=== PATIENT | female | born 1930 | race Caucasian/White ===

== ENCOUNTER → 2016-09-06 | Outpatient (REF) | payer MEDICARE, MEDICAID ==
[~2016-09-06] MED LIST: /AMLO25TA; ACET-654 PO; ACET65TA; ALBU83IN INH; ARIC10TA; ASPI1TAB PO; BISA10SU4 PR; BISO5TAB5 PO; CELE20TA; COMBAER6 INH; DAILTAB; ENEM1ENE4 PR; LASI20TA PO; LEVO125T41 PO; LISI40TA; LOPR50TA; MILKSUS PO; PRED20TA PO; REME15TA; SENN8.6T10 PO; SENO8.6T5; SERT25TA85 PO; SORB70SO PO; TYLE325T5 PO
[2016-09-06 15:08] LABS: MEAN CORPUSCULAR HEMOGLOBIN 30.3 pg (27.0-33.0); MEAN CORPUSCULAR HGB CONC 32.6 g/dl (32.0-36.5); MEAN CORPUSCULAR VOLUME 92.7 fl (80.0-96.0); RED CELL DISTRIBUTION WIDTH 13.8 % (11.5-14.5); WHITE BLOOD COUNT 4.9 K/mm3 (4.0-10.0)
--- NOTE | 2016-09-06 15:59 | REP ---
AP portable chest: 09/06/2016. Comparison: 12/04/2015, 03/01/2012. Clinical history: COPD, hypoxia and cough. A single AP view is rotated towards the right. There are Flores rods in the upper thoracic and mid thoracic region as before. Slight levoconvex curvature of the upper thoracic spine difficult to assess because of rotation. No effusion or dense consolidation. The aorta is tortuous, unchanged and airway intact. Heart not enlarged and no edema. Calcified granuloma in the right mid lower lung zone. Impression: 1. Flores rods in the mid to upper thoracic spine with rotation of the patient towards the right and without visible infiltrate, pleural effusion, cardiomegaly or edema. Signed by Saulo Blakely MD 09/06/2016 04:32 P
== END ==
PROVIDERS: ATTEND Internal Medicine
DX: J44.1 Chronic obstructive pulmonary disease with (acute) exacerbation (principal)

== ENCOUNTER 2016-09-08 15:46 | Inpatient (IN) | payer MEDICARE, MEDICAID ==
[~2016-09-08] VITALS: Ht 167.6 cm; Wt 61.3 kg
[~2016-09-08 15:46] MED LIST changes: -ACET-654 PO; -ALBU83IN INH; -ASPI1TAB PO; -BISA10SU4 PR; -BISO5TAB5 PO; -COMBAER6 INH; -ENEM1ENE4 PR; -LASI20TA PO; -LEVO125T41 PO; -MILKSUS PO; -PRED20TA PO; -SENN8.6T10 PO; -SERT25TA85 PO; -SORB70SO PO; -TYLE325T5 PO
[2016-09-08 16:25] LABS: MEAN CORPUSCULAR HEMOGLOBIN 29.2 pg (27.0-33.0); MEAN CORPUSCULAR HGB CONC 30.6 g/dl (32.0-36.5); MEAN CORPUSCULAR VOLUME 95.4 fl (80.0-96.0); PLATELET COUNT, AUTOMATED 145 k/mm3 (150-450); RED CELL DISTRIBUTION WIDTH 14.8 % (11.5-14.5); WHITE BLOOD COUNT 15.6 K/mm3 (4.0-10.0)
[2016-09-08 16:35] LABS: BANDS 3 % (< 11)
[2016-09-08 17:15] LABS: INR 0.89
--- NOTE | 2016-09-08 17:23 | REP ---
Acute abdominal series, three views including AP Supine chest and supine and cross table lateral abdomen: PA chest: Comparison is 09/06/2016. The study is performed with the patient AP supine, precluding evaluation for free subdiaphragmatic air. The lung cain are over penetrated but appear clear. No pleural effusions are identified. Cardiac size is normal. There are Flores rods in the thoracic spine. Impression: No acute cardiopulmonary findings. Abdomen, supine and cross-table lateral views: No free intraperitoneal air is identified on the cross-table lateral view. The bowel gas pattern appears normal. There are pelvic calcifications, likely phleboliths. There is internal fixation of the left hip. Impression: Normal bowel gas pattern. Signed by Angelo Kerns MD 09/08/2016 05:15 P
[2016-09-08 17:48] LABS: ALBUMIN 3.2 GM/DL (3.2-5.2); ALBUMIN/GLOBULIN RATIO 0.64 (1.00-1.93); ALKALINE PHOSPHATASE 86 U/L (45-117); ALT/SGPT 34 U/L (12-78); AMYLASE 60 U/L (25-115); ANION GAP 7 MEQ/L (8-16); AST/SGOT 40 U/L (15-37); BILIRUBIN,DIRECT < 0.1 MG/DL (0.0-0.2); BILIRUBIN,TOTAL 0.2 MG/DL (0.2-1.0); BLOOD UREA NITROGEN 57 MG/DL (7-18); CALCIUM LEVEL 9.1 MG/DL (8.8-10.2); CARBON DIOXIDE LEVEL 33 MEQ/L (21-32); CHLORIDE LEVEL 108 MEQ/L (98-107); CREATININE FOR GFR 1.57 MG/DL (0.55-1.02); GLOMERULAR FILTRATION RATE 33.3 (>32); GLUCOSE, FASTING 137 MG/DL (83-110); POTASSIUM SERUM 4.3 MEQ/L (3.5-5.1); SODIUM LEVEL 148 MEQ/L (136-145); TOTAL PROTEIN 8.2 GM/DL (6.4-8.2)
[2016-09-08] MEDS ORDERED: CIPROFLOXACIN/D5W 400 MG/200 ML BAG (J0744) As Ordered ONE (18:44)
[2016-09-08] MEDS ORDERED: ALBU83IN INH ×2 (18:58→19:10)
[2016-09-08] MEDS ORDERED: PRED20TA PO (18:58)
[2016-09-08] MEDS ORDERED: MILKSUS PO (19:10)
[2016-09-08] MEDS ORDERED: LASI20TA PO (19:10)
[2016-09-08] MEDS ORDERED: BISA10SU4 PR (19:10)
[2016-09-08] MEDS ORDERED: SORB70SO PO (19:10)
[2016-09-08] MEDS ORDERED: COMBAER6 INH (19:10)
[2016-09-08] MEDS ORDERED: TYLE325T5 PO (19:10)
[2016-09-08] MEDS ORDERED: ACET-654 PO (19:10)
[2016-09-08] MEDS ORDERED: SERT25TA85 PO (19:10)
[2016-09-08] MEDS ORDERED: BISO5TAB5 PO (19:10)
[2016-09-08] MEDS ORDERED: ENEM1ENE4 PR (19:10)
[2016-09-08] MEDS ORDERED: LEVO125T41 PO (19:10)
[2016-09-08] MEDS ORDERED: ASPI1TAB PO (19:10)
[2016-09-08] MEDS ORDERED: SENN8.6T10 PO (19:10)
[2016-09-08] MEDS ORDERED: NS 1,000 ML IV SCH (20:16)
[2016-09-08] MEDS ORDERED: ACETAMINOPHEN TAB 650MG DOSE (2X325MG) PO PRN (20:30)
[2016-09-08] MEDS ORDERED: ONDANSETRON 4MG/2ML VIAL (J2405) IV PRN (20:30)
[2016-09-08] MEDS ORDERED: IPRATROPIUM 0.5MG/ALBUTEROL 2.5MG INH SOL UD 3ML (DUONEB)(J7620) NEB PRN (20:30)
[2016-09-08] MEDS ORDERED: D5W/0.45% SODIUM CHLORIDE 1,000 ML IV SCH (20:45)
--- NOTE | 2016-09-08 21:30 | REPUSA ---
CLINICAL HISTORY: Abdominal pain TECHNIQUE: CT of the abdomen and pelvis was performed without intravenous contrast by obtaining mary lou guous CT axial slices from level of the heart to the proximal femoral diaphyses. Multiplanar reformat s were obtained in the coronal and sagittal projections. COMPARISON: None FINDINGS : LOWER CHEST: The lung bases demonstrate linear lower lobe atelectasis otherwise are unremarkable. Hea rt is normal in size. No pleural or pericardial effusion is seen. LIVER: The liver is normal in size and contour. BILIARY SYSTEM: Cholelithiasis noted without findings of acute cholecystitis. No intrahepatic biliary ductal dilatation or calcified biliary stones. PANCREAS: The pancreas is normal in size, contour and density. No suspicious cystic lesion or ductal dilatation. SPLEEN: Normal in size with no suspicious cystic lesion. ADRENALS: The adrenal glands are unremarkable. KIDNEYS/URETERS: The kidneys are normal in size. Bilateral cortical low-density lesions noted which a re probable cysts. No stones or hydroureteronephrosis. URINARY BLADDER: The urinary bladder is unremarkable without calcified stone, wall thickening or dive rticula seen. UTERUS/ADNEXA: The uterus and adnexa are unremarkable. AORTA AND ILIAC ARTERIES: No aneurysmal dilatation of the aorta or iliac arteries is seen. LYMPH NODES: No enlarged adenopathy. GASTROINTESTINAL: Sigmoid diverticulosis noted without findings of acute diverticulitis. Stomach, duo denum and remaining bowel normal in caliber with no abnormal dilatation, stenosis, or wall thickening . PERITONEUM/RETROPERITONEUM: No ascites or suspicious fluid collection, extraluminal air, or suspiciou s mass. ABDOMINAL/PELVIC WALL: No hernia is identified. OSSEOUS STRUCTURES/SOFT TISSUES: No suspicious osseous lesion, acute fracture, or soft tissue abnorma lity. T11, T12, and L2 mild superior compression deformities with sclerotic changes, without perivert ebral soft tissue swelling or hematoma; and likely chronic. Moderate L4-S1 degenerative disc changes with endplate sclerosis, disc space narrowing and calcifications. Cortical defect in the posterior me dial right iliac bone noted which from prior trauma or intervention. IMPRESSION : 1. Cholelithiasis noted without findings of acute cholecystitis. 2. Bilateral renal cortical cysts. 3. No other acute intra-abdominal pelvic abnormality identified.
--- NOTE | 2016-09-08 22:58 | EDDOCDS ---
Nurse's Notes [facility] Name: Margo Navarrete Age: 85 yrs Sex: Female : 1930 Arrival Date: 09/08/2016 Time: 15:46 Bed 5 Private MD: Kristin Lazar E Diagnosis: Urinary tract infection, site not specified Presentation: 09/08 15:47 Presenting complaint: EMS states: c/o diarrhea since last night with nausea and nr1 projectile vomiting starting this morning. A few days ago diagnosed with bronchitis. 4mg Zofran IV given en route. Adult Sepsis Screening: The patient does not have new or worsening altered mentation. Patient's respiratory rate is less than 22. Suicide/Homicide risk assessment- the patient denies having any suicidal and/or homicidal ideations and does not present with any other emotional, behavioral or mental health complaints. 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 Transition of care: patient was received from [facility]. 15:47 Acuity: SHENA Level 3 nr1 15:47 Method Of Arrival: Ambulance nr1 22:33 Adult Sepsis Screening: Systolic blood pressure is greater than 100. Patient has a nn1 qSOFA score of 0- Negative Sepsis Screen. Triage Assessment: 15:47 General: Appears ill. nr1 16:34 Pain: Location: abdomen Unable to use pain scale. patient non-verbal. Grimaced when nr1 upper abdomen palpated. The patient is triaged at the bedside. See Assessment in Nurses Notes section of ED record. Respiratory: Airway is patent Respiratory effort is even, labored, Respiratory pattern is regular, symmetrical. GI: Abdomen is obese, Bowel sounds present X 4 quads. Abd is soft X 4 quads Abd is tender to palpation in right upper quadrant and left upper quadrant. Historical: - Allergies: no known allergies; - Home Meds: 1. albuterol sulfate 2.5 mg /3 mL (0.083 %) Nebulizer nebu 4 times per day 2. prednisone 20 mg Oral tab 2 tabs once daily 3. Senna-S 8.6-50 mg oral tab 4. Zebeta 5 mg oral tab 5. Zoloft 25 mg Oral tab 1 tab once daily 6. levothyroxine 125 mcg Oral tab 1 tab once daily 7. ipratropium-albuterol 20-100 mcg/actuation Inhl mist 8. acetaminophen 325 mg Oral tab 2 tabs 9. sorbitol 70 % miscellaneous soln 10. aspirin 81 mg Oral tab 11. Lasix 20 mg Oral tab 1 tab once daily 12. Dulcolax (bisacodyl) 5 mg Oral TbEC 1 tab 13. Milk of Magnesia 400 mg/5 mL Oral susp - PMHx: CKD stage 3; Hypothyroidism; COPD; Dementia; Alzheimers; dysphagia; - PSHx: Unable to obtain; - Social history: Smoking status: unknown if patient ever smoked tobacco. non-verbal. - Family history: No immediate family members are acutely ill. - : The pt / caregiver states he / she is not on anticoagulants. Home medication list is obtained from the facility OCT. - Exposure Risk Screening:: Recent exposure to bronchitis. Screenin:49 Screening information is obtained from prior medical records. Fall risk: At risk due to nr1 age, gait disturbance, immobility. Assistance ADL's: Requires assistance with meal preparation, this assistance is provided by bathing, assistance is provided by dressing, assistance is provided by toileting, assistance is provided by ambulation, assistance is provided by housework, assistance is provided by medication administration, assistance is provided by residence staff. Abuse/DV Screen: The patient / caregiver reports he/she is: pt cannot be assessed for living situation at this time. Nutritional screening: Unable to Assess. Advance Directives: There is an active DNR order and the pt has a copy here at this time. home support is adequate. Assessment: 16:49 General: Appears ill, obese, Behavior is uncooperative, non-verbal. . Pain: Location: nr1 left upper quadrant and right upper quadrant Pain. Neurological: Level of Consciousness is lethargic, Oriented to unable to assess. Cardiovascular: Capillary refill < 3 seconds Rhythm is sinus rhythm No ectopy. Respiratory: Airway is patent Respiratory effort is even, unlabored, Respiratory pattern is regular, symmetrical. GI: Abdomen is obese, Abd is soft Abd is tender to palpation in left upper quadrant and right upper quadrant. : Urine is cloudy, frannie blood. 17:00 General: Appears in no apparent distress, comfortable, to be sleeping. Cardiovascular: ttb Heart tones S1 S2 present Rhythm is sinus rhythm No ectopy. Respiratory: Airway is patent Respiratory effort is even, unlabored, Breath sounds with rhonchi expiratory bilaterally. GI: Abdomen is non- distended obese, Bowel sounds present X 4 quads. Derm: Skin is pale. Injury Description: No known injury. 18:00 General: Appears in no apparent distress, comfortable. Pain: Unable to use pain scale. ttb Patient appears quiet. Neurological:. Respiratory: Airway is patent Respiratory effort is even, unlabored. 18:00 Adult Sepsis Screening: Patient has new or worsening altered mentation (1 point). ttb Patient's respiratory rate is less than 22. Systolic blood pressure is greater than 100. Patient has a qSOFA score of 0- Negative Sepsis Screen. 19:00 Reassessment: Patient appears in no apparent distress at this time. pt resting on ttb stretcher. NAD noted. Intermittent movement. IVF's infusing.. Respiratory: Airway is patent Respiratory effort is even, unlabored. 20:00 General: hospitalist in with pt at this time. Pt remains unresponsive verbally. Moving ttb intermittently. Responds to physical stimuli and voice. Cipro completed. IVF's infusing.. Respiratory: Airway is patent Respiratory effort is even, unlabored, Respiratory pattern is regular, symmetrical. 20:00 GI: other no v/n/d since arrival to ED. : incont of urine. ttb 20:10 Adult Sepsis Screening: Patient has new or worsening altered mentation (1 point). ttb Patient's respiratory rate is less than 22. Systolic blood pressure is greater than 100. Patient has a qSOFA score of 1- Negative Sepsis Screen. 20:58 General: Appears in no apparent distress, Behavior is quiet. General: lab in drawing pt ttb at this time. NAD noted. Pt to be transferred to floor.. Cardiovascular: Rhythm is sinus rhythm. Respiratory: Airway is patent Respiratory effort is even, unlabored. 21:01 General: Report given to next RN to continue care. . ttb 22:31 General: Behavior is restless. Neurological: Level of Consciousness is lethargic, nn1 Oriented to patient nonverbal . Respiratory: Airway is patent Respiratory effort is even, unlabored, Respiratory pattern is regular, symmetrical. Derm: Skin is pale. Vital Signs: 16:47 BP 114 / 72; Pulse 91; Resp 20; Temp 98.0(TE); Pulse Ox 93% on 4 lpm NC; Height 5 ft. 6 nr1 in. (167.64 cm); 17:00 Pulse 78 MON; Pulse Ox 94% ; ttb 17:30 Pulse 80 MON; Pulse Ox 95% ; ttb 18:00 Pulse 78 MON; Pulse Ox 94% ; ttb 18:49 BP 173 / 82 (auto/); ttb 18:49 Pulse 76 MON; Resp 20; Pulse Ox 93% on 2 lpm NC; Pain 0/10; ttb 21:17 BP 142 / 83; Pulse 82; Resp 18; Temp 98.2(TE); Pulse Ox 93% on R/A; mdr 22:30 BP 183 / 78; Pulse 79; Resp 20; Temp 98(TE); Pulse Ox 94% on 2 lpm NC; nn1 Vitals: 16:34 Log In Time N/A - ambulance arrival. nr1 ED Course: 15:47 Patient visited by Becky Díaz, Compliance Vice President. lbd 15:47 Kristin Lazar is Private Physician. lbd 15:47 Quin Rivera,DERRICK is Primary Nurse. lbd 15:47 Patient moved to Waiting lbd 15:47 Patient moved to 5 lbd 15:51 Triage Initiated nr1 15:59 [facility] ke 16:00 Patient visited by Vikas Patterson FNP. ke 16:04 Patient visited by Vikas Patterson FNP. ke 16:32 Patient visited by Vikas Patterson FNP. ke 16:37 Patient visited by Fiorella Chatterjee,DERRICK. nr1 16:49 The patient / caregiver is instructed regarding the plan of care and ED course. Patient nr1 has correct armband on for positive identification. Placed in gown. personnel monitor on. Pulse ox on. NIBP on. 16:49 Maintain field IV. Dressing intact. Good blood return noted. Site clean & dry. Gauge & nr1 site: 18g left AC. 16:53 Urinalysis Sent. ttb 16:53 Urine Culture Sent. ttb 16:55 Patient visited by Fiorella Chatterjee,DERRICK. nr1 16:58 Patient name changed from Margo\S\\S\Landon\S\ to Margo\S\ \S\Landon. EDMS 16:59 [facility] [place] was scanned into [employer] and attached to record. zo 17:00 DIFFERENTIAL NO CHARGE Sent. cln 17:00 Prothrombin Time Profile\E\INR Sent. cln 17:00 Labs drawn. (by ED staff). Labs/Blood culture drawn Urine collected. straight cath ttb specimen. 17:27 Patient visited by Vikas Patterson FNP. ke 17:46 Abdomen, Flat\E\Upright,PA Chest Returned. EDMS 17:49 Patient visited by Vikas Patterson FNP. ke 18:07 Patient visited by Vikas Patterson FNP. ke 18:26 Primary Nurse role handed off by Quin Rivera,DERRICK [facility] 18:38 Patient visited by Vikas Patterson FNP. ke 18:42 Fiorella Chatterjee,DERRICK is Primary Nurse. nr1 18:55 Patient visited by Arin Price RN. ttb 19:15 Stew Richards MD is Hospitalizing Provider. ke 20:10 Patient visited by Arin Price RN. ttb 21:01 Patient visited by Arin Price RN. ttb 21:43 CT ABD & PELVIS W/O CONTRAST Returned. EDMS 22:31 No procedures done that require assistance. nn1 Administered Medications: 17:21 Drug: NS 0.9% 1000 ml [sodium chloride 0.9 % intravenous solution] Route: IV; Rate: 250 ttb mL/hr; Site: left antecubital; 18:48 Drug: Ciprofloxacin 400 mg [ciprofloxacin 400 mg/200 mL in 5 % dextrose intravenous nr1 piggyback] Route: IVPB; Rate: 200 mL/hr; Infused Over: 60 mins; Site: left antecubital; 20:00 Follow up: Response: No Adverse Reaction; No significant change.; IV Status: Completed ttb infusion Order Results: Lab Order: Amylase; SPEC'M 09/08/16 16:57 Test: AMYLASE; Value: 60; Range: 25-115; Units: U/L; Status: F Lab Order: Basic Metabolic Profile; SPEC'M 09/08/16 16:57 Test: GLUCOSE, FASTING; Value: 137; Range: 83-110; Abnormal: Above high normal; Units: MG/DL; Status: F Test: BLOOD UREA NITROGEN; Value: 57; Range: 7-18; Abnormal: Above high normal; Units: MG/DL; Status: F Test: CREATININE FOR GFR; Value: 1.57; Range: 0.55-1.02; Abnormal: Above high normal; Units: MG/DL; Status: F Test: GLOMERULAR FILTRATION RATE; Value: 33.3; Range: >32; Status: F Test: SODIUM LEVEL; Value: 148; Range: 136-145; Abnormal: Above high normal; Units: MEQ/L; Status: F Test: POTASSIUM SERUM; Value: 4.3; Range: 3.5-5.1; Units: MEQ/L; Status: F Test: CHLORIDE LEVEL; Value: 108; Range: 98-107; Abnormal: Above high normal; Units: MEQ/L; Status: F Test: CARBON DIOXIDE LEVEL; Value: 33; Range: 21-32; Abnormal: Above high normal; Units: MEQ/L; Status: F Test: ANION GAP; Value: 7; Range: 8-16; Abnormal: Below low normal; Units: MEQ/L; Status: F Test: CALCIUM LEVEL; Value: 9.1; Range: 8.8-10.2; Units: MG/DL; Status: F Test Note: ; Units are mL/min/1.73 m2 Chronic Kidney Disease Staging per NKF: Stage I & II GFR >=60 Normal to Mildly Decreased Stage III GFR 30-59 Moderately Decreased Stage IV GFR 15-29 Severely Decreased Stage V GFR <15 Very Little GFR Left ESRD GFR <15 on COMMUNITY SERVICE MANAGER Lab Order: CBC with Diff; SPEC'M 09/08/16 16:09 Test: WHITE BLOOD COUNT; Value: 15.6; Range: 4.0-10.0; Abnormal: Above high normal; Units: K/mm3; Status: F Test: RED BLOOD COUNT; Value: 4.23; Range: 4.00-5.40; Units: M/mm3; Status: F Test: HEMOGLOBIN; Value: 12.3; Range: 12.0-16.0; Units: g/dl; Status: F Test: HEMATOCRIT; Value: 40.4; Range: 36.0-47.0; Units: %; Status: F Test: MEAN CORPUSCULAR VOLUME; Value: 95.4; Range: 80.0-96.0; Units: fl; Status: F Test: MEAN CORPUSCULAR HEMOGLOBIN; Value: 29.2; Range: 27.0-33.0; Units: pg; Status: F Test: MEAN CORPUSCULAR HGB CONC; Value: 30.6; Range: 32.0-36.5; Abnormal: Below low normal; Units: g/dl; Status: F Test: RED CELL DISTRIBUTION WIDTH; Value: 14.8; Range: 11.5-14.5; Abnormal: Above high normal; Units: %; Status: F Test: PLATELET COUNT, AUTOMATED; Value: 145; Range: 150-450; Abnormal: Below low normal; Units: k/mm3; Status: F Test: NEUTROPHILS; Value: 88; Range: 35-75; Abnormal: Above high normal; Units: %; Status: F Test: BANDS; Value: 3; Range: < 11; Units: %; Status: F Test: LYMPHOCYTES; Value: 6; Range: 16-52; Abnormal: Below low normal; Units: %; Status: F Test: MONOCYTES; Value: 3; Range: 0-8; Units: %; Status: F Test: RBC MORPHOLOGY; Value: NORMAL; Status: F Lab Order: Lipase; SPEC'M 09/08/16 16:57 Test: LIPASE; Value: 208; Range: 73-393; Units: U/L; Status: F Lab Order: Liver Profile; SPEC'M 09/08/16 16:57 Test: AST/SGOT; Value: 40; Range: 15-37; Abnormal: Above high normal; Units: U/L; Status: F Test: ALT/SGPT; Value: 34; Range: 12-78; Units: U/L; Status: F Test: ALKALINE PHOSPHATASE; Value: 86; Range: 45-117; Units: U/L; Status: F Test: BILIRUBIN,TOTAL; Value: 0.2; Range: 0.2-1.0; Units: MG/DL; Status: F Test: BILIRUBIN,DIRECT; Value: < 0.1; Range: 0.0-0.2; Units: MG/DL; Status: F Test: TOTAL PROTEIN; Value: 8.2; Range: 6.4-8.2; Units: GM/DL; Status: F Test: ALBUMIN; Value: 3.2; Range: 3.2-5.2; Units: GM/DL; Status: F Test: ALBUMIN/GLOBULIN RATIO; Value: 0.64; Range: 1.00-1.93; Abnormal: Below low normal; Status: F Lab Order: Prothrombin Time Profile\E\INR; SPEC'M 09/08/16 16:57 Test: PROTHROMBIN TIME; Value: 12.2; Range: 12.3-14.5; Abnormal: Below low normal; Units: SECONDS; Status: F Test: INR; Value: 0.89; Status: F Test Note: ; THERAPUTIC HUMAN INR VALUES INDICATIONS NORMAL RANGES PROPHYLAXIS/TREATMENT OF: VENOUS THROMBOSIS 2.0-3.0 PULMONARY EMBOLISM 2.0-3.0 PREVENTION OF SYSTEMIC EMBOLISM FROM: TISSUE HEART VALVES 2.0-3.0 ACUTE MYOCARDIAL INFARCTION 2.0-3.0 VALVULAR HEART DISEASE 2.0-3.0 ATRIAL FIBRILLATION 2.0-3.0 MECHANICAL VALVES(HIGH RISK) 2.5-3.5 RECURRENT MYOCARDIAL INFARCTION 2.5-3.5 Lab Order: Urinalysis; SPEC'M 09/08/16 16:46 Test: APPEARANCE, URINE; Value: CLOUDY; Range: CLEAR; Abnormal: Above high normal; Status: F Test: COLOR, URINE; Value: YELLOW; Range: YELLOW; Status: F Test: PH,URINE; Value: 5.0; Range: 5.0-9.0; Units: UNITS; Status: F Test: SPECIFIC GRAVITY URINE AUTO; Value: 1.016; Range: 1.002-1.035; Status: F Test: PROTEIN, URINE AUTO; Value: 2+; Range: NEGATIVE; Abnormal: Above high normal; Units: mg/dL; Status: F Test: GLUCOSE, URINE (UA) AUTO; Value: NEGATIVE; Range: NEGATIVE; Units: mg/dL; Status: F Test: KETONE, URINE AUTO; Value: NEGATIVE; Range: NEGATIVE; Units: mg/dL; Status: F Test: UROBILINOGEN, URINE AUTO; Value: 0.2; Range: 0.0-2.0; Units: mg/dL; Status: F Test: BILIRUBIN, URINE AUTO; Value: NEGATIVE; Range: NEGATIVE; Status: F Test: NITRITE, URINE AUTO; Value: NEGATIVE; Range: NEGATIVE; Status: F Test: LEUKOCYTE ESTERASE, URINE AUTO; Value: 3+; Range: NEGATIVE; Abnormal: Above high normal; Status: F Test: BLOOD, URINE BLOOD; Value: 3+; Range: NEGATIVE; Abnormal: Above high normal; Status: F Test: WBC, URINE AUTO; Value: TNTC; Range: 0-3; Abnormal: Above high normal; Units: /HPF; Status: F Test: RBC, URINE AUTO; Value: TNTC; Range: 0-3; Abnormal: Above high normal; Units: /HPF; Status: F Test: BACTERIA, URINE AUTO; Value: 2+; Range: NEGATIVE; Abnormal: Above high normal; Status: F Test: SQUAMOUS EPITHELIAL CELL UR AU; Value: 1; Range: 0-6; Units: /HPF; Status: F Test: MUCUS, URINE; Value: SMALL; Range: NEGATIVE; Status: F Test: HYALINE CAST, URINE AUTO; Value: 11; Range: 0-1; Units: /LPF; Status: F Test: AMORPHOUS SEDIMENT; Value: SMALL; Range: NEGATIVE; Abnormal: Above high normal; Status: F Lab Order: Lactic Acid (Stout tube on ice); SPEC'M 09/08/16 16:09 Test: LACTIC ACID LEVEL, LACTATE; Value: 2.3; Range: 0.4-2.0; Abnormal: Above upper panic limits; Units: MMOL/L; Status: F Lab Order: PLATELET ESTIMATE; SPEC'M 09/08/16 16:09 Test: PLATELET ESTIMATE; Value: NORMAL; Range: NORMAL; Status: F Lab Order: LACTIC ACID LEVEL, LACTATE; SPEC'M 09/08/16 20:56 Test: LACTIC ACID LEVEL, LACTATE; Value: 1.3; Range: 0.4-2.0; Units: MMOL/L; Status: F Radiology Order: Abdomen, Flat\E\Upright,PA Chest Test: Abdomen, Flat\E\Upright,PA Chest REASON FOR EXAMINATION: Abdomen Pain; Acute abdominal series, three views including AP Supine chest and supine and; cross table lateral abdomen:; ; PA chest:; ; Comparison is 09/06/2016.; ; The study is performed with the patient AP supine, precluding evaluation for free; subdiaphragmatic air.; ; ; ; The lung cain are over penetrated but appear clear.; ; No pleural effusions are identified. Cardiac size is normal. There are; Flores rods in the thoracic spine.; ; Impression:; ; No acute cardiopulmonary findings.; ; ; ; ; ; Abdomen, supine and cross-table lateral views:; ; No free intraperitoneal air is identified on the cross-table lateral view.; ; The bowel gas pattern appears normal. There are pelvic calcifications, likely; phleboliths. There is internal fixation of the left hip.; ; Impression:; ; Normal bowel gas pattern.; ; ; Signed by; Angelo Kerns MD 09/08/2016 05:15 P; Radiology Order: CT ABD & PELVIS W/O CONTRAST Test: CT ABD & PELVIS W/O CONTRAST REASON FOR EXAMINATION: abdominal pain; ; CLINICAL HISTORY: Abdominal pain; TECHNIQUE: CT of the abdomen and pelvis was performed without intravenous contrast by obtaining mary lou; guous CT axial slices from level of the heart to the proximal femoral diaphyses. Multiplanar reformat; s were obtained in the coronal and sagittal projections.; COMPARISON: None; FINDINGS :; LOWER CHEST: The lung bases demonstrate linear lower lobe atelectasis otherwise are unremarkable. Hea; rt is normal in size. No pleural or pericardial effusion is seen.; LIVER: The liver is normal in size and contour.; BILIARY SYSTEM: Cholelithiasis noted without findings of acute cholecystitis. No intrahepatic biliary; ductal dilatation or calcified biliary stones.; PANCREAS: The pancreas is normal in size, contour and density. No suspicious cystic lesion or ductal; dilatation.; SPLEEN: Normal in size with no suspicious cystic lesion.; ADRENALS: The adrenal glands are unremarkable.; KIDNEYS/URETERS: The kidneys are normal in size. Bilateral cortical low-density lesions noted which a; re probable cysts. No stones or hydroureteronephrosis.; URINARY BLADDER: The urinary bladder is unremarkable without calcified stone, wall thickening or dive; rticula seen.; UTERUS/ADNEXA: The uterus and adnexa are unremarkable.; AORTA AND ILIAC ARTERIES: No aneurysmal dilatation of the aorta or iliac arteries is seen.; LYMPH NODES: No enlarged adenopathy.; GASTROINTESTINAL: Sigmoid diverticulosis noted without findings of acute diverticulitis. Stomach, duo; denum and remaining bowel normal in caliber with no abnormal dilatation, stenosis, or wall thickening; .; PERITONEUM/RETROPERITONEUM: No ascites or suspicious fluid collection, extraluminal air, or suspiciou; s mass.; ABDOMINAL/PELVIC WALL: No hernia is identified.; OSSEOUS STRUCTURES/SOFT TISSUES: No suspicious osseous lesion, acute fracture, or soft tissue abnorma; lity. T11, T12, and L2 mild superior compression deformities with sclerotic changes, without perivert; ebral soft tissue swelling or hematoma; and likely chronic. Moderate L4-S1 degenerative disc changes; with endplate sclerosis, disc space narrowing and calcifications. Cortical defect in the posterior me; dial right iliac bone noted which from prior trauma or intervention.; IMPRESSION :; 1. Cholelithiasis noted without findings of acute cholecystitis.; 2. Bilateral renal cortical cysts.; 3. No other acute intra-abdominal pelvic abnormality identified.; ; Outcome: 19:15 Decision to Hospitalize by Provider. ke 22:31 Discharge Assessment: Patient awake, alert and oriented x 3. No cognitive and/or nn1 functional deficits noted. Patient verbalized understanding of disposition instructions. patient administered narcotics - no. The following High Risk Discharge criteria are identified: None. Admitted to PCU accompanied by nurse, accompanied by tech, via stretcher, with oxygen, on monitor, with chart. Condition: stable. Admission hand-off: Report Faxed Fax receipt verified by DERRICK Lord . Property :Personal belongings accompany Pt. 22:33 No special radiology studies were completed. nn1 22:57 Patient left the ED. nn1 Signatures: Dispatcher [employer] EDMS Becky Díaz, Compliance Vice President Unit lbd Vikas Patterson FNP FNP ke Olin, Zoeann zo Hafner, JaneRN RN Arin Smith RN RN ttb Rillera, Nicole, RN RN nr1 Nunez, Nikkole, RN RN nn1 Kareem Isaac, PHOTOVOLTAIC TECHNICIAN PHOTOVOLTAIC TECHNICIAN Gloria Ashley, PHOTOVOLTAIC TECHNICIAN PHOTOVOLTAIC TECHNICIAN cln MTDD
--- NOTE | 2016-09-08 22:58 | EDDOCDS ---
Physician Documentation [facility] Name: Margo Navarrete Age: 85 yrs Sex: Female : 1930 Arrival Date: 09/08/2016 Time: 15:46 Bed 5 Private MD: Kristin Lazar E Disposition: 09/08/16 19:15 Hospitalization ordered by Stew Richards for Inpatient Admission. Preliminary diagnosis is Urinary tract infection, site not specified. - Bed requested for PCU. - Status is Inpatient Admission. nn1 - Condition is Stable. - Problem is an acute exacerbation. - Symptoms are unchanged. Historical: - Allergies: no known allergies; - Home Meds: 1. albuterol sulfate 2.5 mg /3 mL (0.083 %) Nebulizer nebu 4 times per day 2. prednisone 20 mg Oral tab 2 tabs once daily 3. Senna-S 8.6-50 mg oral tab 4. Zebeta 5 mg oral tab 5. Zoloft 25 mg Oral tab 1 tab once daily 6. levothyroxine 125 mcg Oral tab 1 tab once daily 7. ipratropium-albuterol 20-100 mcg/actuation Inhl mist 8. acetaminophen 325 mg Oral tab 2 tabs 9. sorbitol 70 % miscellaneous soln 10. aspirin 81 mg Oral tab 11. Lasix 20 mg Oral tab 1 tab once daily 12. Dulcolax (bisacodyl) 5 mg Oral TbEC 1 tab 13. Milk of Magnesia 400 mg/5 mL Oral susp - PMHx: CKD stage 3; Hypothyroidism; COPD; Dementia; Alzheimers; dysphagia; - PSHx: Unable to obtain; - Social history: Smoking status: unknown if patient ever smoked tobacco. non-verbal. - Family history: No immediate family members are acutely ill. - : The pt / caregiver states he / she is not on anticoagulants. Home medication list is obtained from the facility OCT. - Exposure Risk Screening:: Recent exposure to bronchitis. Vital Signs: 09/08 16:47 BP 114 / 72; Pulse 91; Resp 20; Temp 98.0(TE); Pulse Ox 93% on 4 lpm NC; Height 5 ft. 6 nr1 in. (167.64 cm); 17:00 Pulse 78 MON; Pulse Ox 94% ; ttb 17:30 Pulse 80 MON; Pulse Ox 95% ; ttb 18:00 Pulse 78 MON; Pulse Ox 94% ; ttb 18:49 BP 173 / 82 (auto/); ttb 18:49 Pulse 76 MON; Resp 20; Pulse Ox 93% on 2 lpm NC; Pain 0/10; ttb 21:17 BP 142 / 83; Pulse 82; Resp 18; Temp 98.2(TE); Pulse Ox 93% on R/A; mdr 22:30 BP 183 / 78; Pulse 79; Resp 20; Temp 98(TE); Pulse Ox 94% on 2 lpm NC; nn1 MDM: 16:14 -Blood Culture (Adults Only), peripheral from different site, or from device/port/PICC ke etc. if present ordered. 16:14 IV Saline Lock ordered. ke 16:14 Undress patient appropriately for examination ordered. ke 16:14 Straight cath ordered. ke 16:14 NS 0.9% 1000 ml IV at 250 mL/hr continuous ordered. ke 16:15 Amylase Ordered. EDMS 16:15 Basic Metabolic Profile Ordered. EDMS 16:15 CBC with Diff Ordered. EDMS 16:15 Lipase Ordered. EDMS 16:15 Liver Profile Ordered. EDMS 16:15 Prothrombin Time Profile\E\INR Ordered. EDMS 16:15 Urinalysis Ordered. EDMS 16:15 Lactic Acid (Stout tube on ice) Ordered. EDMS 16:15 Urine Culture Ordered. EDMS 16:16 Abdomen, Flat\E\Upright,PA Chest Ordered. EDMS 16:16 NOTHING BY MOUTH+DIET ordered. EDMS 16:28 DIFFERENTIAL NO CHARGE Ordered. EDMS 16:39 -Blood Culture (Adults Only), peripheral from different site, or from device/port/PICC lbd etc. if present complete. 16:41 BLOOD CULTURES Ordered. EDMS 16:58 Financial registration complete. zo 16:59 [facility] Payment Agreement was scanned into [employer] and attached to record. zo 18:27 Basic Metabolic Profile Reviewed. ke 18:27 CBC with Diff Reviewed. ke 18:27 Liver Profile Reviewed. ke 18:27 Prothrombin Time Profile\E\INR Reviewed. ke 18:27 Urinalysis Reviewed. ke 18:27 Lactic Acid (Stout tube on ice) Reviewed. ke 18:27 Amylase Reviewed. ke 18:27 Lipase Reviewed. ke 18:27 PLATELET ESTIMATE Reviewed. ke 18:27 Abdomen, Flat\E\Upright,PA Chest Reviewed. ke 18:33 Ciprofloxacin 400 mg IVPB at 200 mL/hr once over 60 mins ordered. ke 18:34 BED REQUEST+ADM ordered. EDMS 20:21 NPO DIET ordered. EDMS 20:23 Admission / Observation Status ordered. EDMS 20:23 CT ABD & PELVIS W/O CONTRAST Ordered. EDMS 20:24 LACTIC ACID LEVEL, LACTATE Ordered. EDMS 20:24 CBC WITH DIFFERENTIAL Ordered. EDMS 20:24 RENAL PROFILE Ordered. EDMS 20:24 MAGNESIUM LEVEL Ordered. EDMS 20:24 INFLUENZA A&B RAPID ANTIGEN Ordered. EDMS 21:21 OSMOLALITY,URINE Ordered. EDMS 21:21 SODIUM,RANDOM URINE Ordered. EDMS 22:25 THYROID STIMULATING HORMONE Ordered. EDMS Administered Medications: 17:21 Drug: NS 0.9% 1000 ml [sodium chloride 0.9 % intravenous solution] Route: IV; Rate: 250 ttb mL/hr; Site: left antecubital; 18:48 Drug: Ciprofloxacin 400 mg [ciprofloxacin 400 mg/200 mL in 5 % dextrose intravenous nr1 piggyback] Route: IVPB; Rate: 200 mL/hr; Infused Over: 60 mins; Site: left antecubital; 20:00 Follow up: Response: No Adverse Reaction; No significant change.; IV Status: Completed ttb infusion Signatures: Dispatcher [employer] Becky Luna, Supervisor [employer] Aliyah Wynne RN RN daVikas Mustafa, UNIX SYSTEMS ADMINISTRATOR UN[employer] SYSTEMS ADMINISTRATOR Niki Patel Nicole, RN RN nr1 Maxwell Sunshine RN RN nn1 Arin Price RN ttb The chart was reviewed and I authenticate all verbal orders and agree with the evaluation and treatment provided.Attachments: 16:59 [facility] Payment Agreement zo MTDD
[2016-09-08 23:00] VITALS: BP 140/78
[2016-09-09] MEDS: metroNIDAZOLE 500 MG in APPROPRIATE DILUENT 1 EA IV SCH ×4 (00:03→23:25)
[2016-09-09] MEDS: HEPARIN SOD (PORCINE) 5000 UNITS/ML VIAL SC SCH ×4 (00:03→21:05)
[2016-09-09] MEDS: IPRATROPIUM 0.5MG/ALBUTEROL 2.5MG INH SOL UD 3ML (DUONEB)(J7620) NEB SCH ×4 (01:59→20:15)
[2016-09-09 02:57] VITALS: BP 142/64
[2016-09-09 05:45] LABS: BASO % 0.2 % (0.0-1.0); EOS % 0.3 % (0.0-3.0); LARGE UNSTAINED CELL # 0.1 K/mm3 (0.0-0.4); LYMPH % 18.4 % (24.0-44.0); MEAN CORPUSCULAR HEMOGLOBIN 29.6 pg (27.0-33.0); MEAN CORPUSCULAR HGB CONC 31.9 g/dl (32.0-36.5); MEAN CORPUSCULAR VOLUME 92.8 fl (80.0-96.0); MONO # 0.4 K/mm3 (0.0-0.8); MONO % 3.8 % (0.0-5.0); NEUTROPHILS # 8.2 K/mm3 (1.8-7.7); NEUTROPHILS % 76.2 % (36.0-66.0); PLATELET COUNT, AUTOMATED 129 k/mm3 (150-450); RED CELL DISTRIBUTION WIDTH 14.1 % (11.5-14.5); WHITE BLOOD COUNT 10.8 K/mm3 (4.0-10.0)
[2016-09-09] MEDS ORDERED: CIPROFLOXACIN 200 MG in APPROPRIATE DILUENT 1 EA IV SCH (06:00)
--- NOTE | 2016-09-09 06:00 | HPE ---
DATE OF ADMISSION: 09/08/2016 PRIMARY CARE PROVIDER: Dr. Lazar CODE STATUS: DO NOT RESUSCITATE, DO NOT INTUBATE. CHIEF COMPLAINT: Projectile vomiting and nausea. HISTORY OF PRESENT ILLNESS: Ms. Navarrete is an 85-year-old female with past medical history of advanced dementia, hypertension, hypothyroidism, who was sent in from [facility] for abdominal pain, nausea, and vomiting. History is obtained from medical records and nursing [employer] supervisor at [facility] as the patient at baseline is nonverbal due to her advanced dementia. Per staff, patient was reportedly treated for bronchitis approximately 3 or 4 days ago. Had a chest x-ray 2 days ago and there was no concern for effusion, no infiltrate. She was then treated for chronic obstructive pulmonary disease (COPD), was started on prednisone 40 daily on 09/06/2016. Then earlier today, during assessment, nurse noticed the patient to be moaning. When they examined her, she was felt to have abdominal pain and also had three episodes of projectile vomiting and was sent in for further evaluation. Per staff, she continued to have normal vital signs throughout. Normally is incontinent of urine. Her last bowel habits have been more on the constipated side than diarrhea. In the ED was given 1 liter of normal saline and also ciprofloxacin 400 times one. PAST MEDICAL HISTORY: 1. Dementia. 2. Hypertension. 3. Gastroesophageal reflux disease (GERD). 4. Hypothyroidism. 5. Depression. 6. Osteoporosis. 7. Constipation. 8. First degree atrioventricular (AV) block. 9. Gastrointestinal (GI) bleed. 10. Diverticulosis. 11. History of Escherichia (E) coli urinary tract infection (UTI). PAST SURGICAL HISTORY: 1. Open reduction, internal fixation of left hip in 2005. 2. Bunion repair. 3. Sigmoidoscopy. 4. Esophagogastroduodenoscopy (EGD). ALLERGIES: NO KNOWN DRUG ALLERGIES. HOME MEDICATIONS: - Tylenol 650 mg every 4 hours as needed and 650 mg by mouth daily - albuterol sulfate 2.5 inhaled four times a day - albuterol sulfate as needed - Combivent one puff inhaled twice a day - aspirin 81 mg by mouth daily - bisacodyl 10 mg by mouth daily - bisoprolol 5 mg by mouth daily - enema as needed daily - Lasix 20 mg by mouth daily - Levoxyl 125 mcg by mouth daily - Milk of Magnesia 30 mL by mouth daily - prednisone was started on 09/06/2016 with a plan for stop of 09/10/2016 - senna 8.6 mg by mouth as needed daily - sertraline 25 mg four times a day - sorbitol 30 mL every 2 days FAMILY HISTORY: Unobtainable due to advanced age and dementia. SOCIAL HISTORY: She is currently a resident of [facility]. Her health care proxy is Stew Navarrete, her son (phone number [phone]) who lives in [place]. REVIEW OF SYSTEMS: Unobtainable as per above. PHYSICAL EXAMINATION: Blood pressure 114/72. Heart rate is fluctuated, 76-91. Respiration rate 20. Pulse oximetry 93% on 2 liters nasal cannula. Temperature 98. GENERAL: Patient is lying in bed, comfortable, in no respiratory distress or psychiatric distress. Chronically ill appearing. Appears stated age. HEENT: Normocephalic, atraumatic. Pupils equal and reactive to light. Very dry oral mucosa. Edentulous. No thrush or lesions appreciated. NECK: Supple. Trachea midline. CHEST: Symmetric chest rise. Breath sounds coarse bilateral, but no appreciable wheezing or crackles. HEART: Regular rate and rhythm. S1, S2 present. ABDOMEN: Soft. Diffusely tender to palpation but most significant on right lower quadrant. No guarding. No rebound. No peritoneal signs. EXTREMITY: No pedal edema. Pedal pulses present bilaterally. NEUROLOGICAL: She is baseline nonverbal with advanced dementia. No myoclonus. LABORATORY DATA: WBC 15.6, hemoglobin 12.3, hematocrit 40.4, platelet 145. This is lower compared to her baseline, which was in the 200s. Neutrophil 88, 3 bands. Sodium 148, improved from earlier today, 150. Potassium 4.3, chloride 108, carbon dioxide 33, BUN 57, creatinine 1.57, glucose 137, lactic acid 2.3, calcium 9.1, total bilirubin negative, AST 40, ALT normal, alkaline phosphatase normal. Amylase, lipase within normal limits. PT 12.2, INR 0.89. UA has cloudy appearance, 2+ protein, 3+ blood, 3+ leukocyte esterase, too numerous to count WBC and RBC. Chest x-ray from 09/06/2016 reports Flores rods in mid to upper thoracic spine with rotation of patient towards right without visible infiltrate, pleural effusion, cardiomegaly or edema. Abdominal x-ray shows normal gas bowel pattern. No acute cardiopulmonary findings. IMPRESSION AND PLAN: Ms. Navarrete is an 85-year-old female with advanced dementia sent over from [facility] due to episodes of vomiting and abdominal pain. 1. Abdominal pain, etiology unclear. Possible causes include infectious obstruction, constipation versus ischemia. Have ordered CT abdomen and pelvis. Unfortunately, because of her renal function, contrast cannot be performed. Will followup with result of CT. She has received Cipro in the ED, one dose. Continue supportive treatment with Zofran for antiemetic. Patient will remain nothing by mouth for now. She also has elevated lactic acid. Recheck lactic acid level. 2. Acute kidney injury (CHUY). Her baseline creatinine is around 0.9 to 1.3 going back to as far as 2012. This is likely secondary to dehydration from vomiting and diuretic use, Lasix. Hold home antihypertensive agents. Continue intravenous (IV) hydration with D5-1/2 normal saline. 3. Hyponatremia. This is likely secondary to dehydration from vomiting. Continue cautious fluid rehydration. 4. Leukocytosis. Could be due to underlying infection, ischemia or obstruction. Will check CT abdomen and pelvis as mentioned above. Followup labs in the morning. 5. History of hypothyroidism. Patient will remain nothing by mouth. Levothyroxine will be administered via IV with 80% decrease in conversion. 6. Depression. For now, we will hold her home medications as she has been only taking every other day. Re-evaluation can be made in the morning once her condition improves. 7. 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 Patient reportedly requires total assist and use of Karl lift. 8. Code status. Patient has a life-sustaining treatment (MOLST) form that is DO NOT RESUSCITATE, DO NOT INTUBATE with no IV fluid hydration or IV antibiotics. However, the case was discussed between Dr. Richards and the patient's son, Stew Navarrete, phone number [phone]. At this time, Mr. Navarrete is agreeable to starting IV fluids and also IV antibiotics due to her current condition. He will let us know should he change his mind. I have both independently examined this patient as well as reviewed the dictated note. I have discussed in detail with the resident the findings and plan of treatment as documented in the residents note. I will continue to follow the patient and offer further guidance to the patients care as necessary during this hospital stay. ARPAN
[2016-09-09 06:04] LABS: ALBUMIN 2.8 GM/DL (3.2-5.2); CALCIUM LEVEL 8.8 MG/DL (8.8-10.2); CREATININE FOR GFR 1.18 MG/DL (0.55-1.02); GLOMERULAR FILTRATION RATE 46.2 (>32); MAGNESIUM LEVEL 2.3 MG/DL (1.8-2.4); PHOSPHORUS LEVEL 2.2 MG/DL (2.5-4.9); POTASSIUM SERUM 4.2 MEQ/L (3.5-5.1)
[2016-09-09 08:00] VITALS: BP 167/67
[2016-09-09] MEDS ORDERED: D5W 1,000 ML IV SCH (08:00)
[2016-09-09] MEDS ORDERED: LEVOTHYROXINE 0.125 MG TAB (125 MCG) PO SCH (09:00)
[2016-09-09] MEDS: LEVOTHYROXINE 100 MCG (0.1MG) VIAL IV SCH (09:00)
[2016-09-09] MEDS ORDERED: NEUTRA-PHOS 1.25 GM PACKET PO SCH (09:00)
[2016-09-09 12:00] VITALS: BP 136/63
[2016-09-09] MEDS ORDERED: POTASSIUM PHOSPHATE INJ 20 MMOL in D5W 250 ML IV ONE (12:00)
[2016-09-09 12:39] LABS: ALBUMIN 2.9 GM/DL (3.2-5.2); ALBUMIN/GLOBULIN RATIO 0.66 (1.00-1.93); BILIRUBIN,TOTAL 0.4 MG/DL (0.2-1.0); CALCIUM LEVEL 8.9 MG/DL (8.8-10.2); CREATININE FOR GFR 1.24 MG/DL (0.55-1.02); GLOMERULAR FILTRATION RATE 43.7 (>32); POTASSIUM SERUM 4.4 MEQ/L (3.5-5.1); TOTAL PROTEIN 7.3 GM/DL (6.4-8.2)
--- NOTE | 2016-09-09 13:03 | IPNPDOC ---
Text Note Date of Service The patient was seen on 09/09/16 at 12:38. NOTE Subjective: Patient is an 85 year old female with a PMHx HTN Hypothyroidism, Advanced Dementia, First degree AV oracio, Depression, GERD, Osteoporosis, and History of diverticulosis who presented from for abdominal pain and projectile vomiting. Patient was reportedly being treated for bronchitis and COPD exacerbation. At the [place] patient experienced vomiting of 3 episodes and may have had diarrhea as well, she was then transferred to [facility] for further evaluation. Patient was seen and examined at the bedside. Patient is non-verbal and nursing has noted that she has not experienced any vomiting or diarrhea episodes overnight. Objective: Vitals (See below) General: Lying in bed, no acute distress, comfortable, awake, drowsy, not oriented at all HEENT: NC, AT CVS: RRR, +S1S2 Lungs: Fair air entry b/l, -w/r/r Abdomen: Soft, ND, NT, +BSx4 Extremities: +PPx4, -edema, - calf tenderness Assessment and plan: 1. s/p Abdominal pain with nausea and vomiting, with possible diarrhea - likely 2/2 infectious etiology (possible gastroenteritis), less likely obstruction - No episodes of nausea, vomiting or diarrhea, physical does not reveal any abdominal tenderness at this time - CT abdomen 09/08: cholelithiasis, no cholecystitis, bilateral renal cortical cysts, no other acute intra-abdominal pelvic abnormality identified - GI panel pending - Currently is NPO - will advance as tolerated; will start pureed / nectar thick liquids - c/w Zofran for nausea - c/w Ciprofloxacin and Flagyl (Day #2) 2. Sepsis - - likely 2/2 intraabdominal etiology, possibly 2/2 UTI - afebrile - Leukocytosis present - recent history of cough - treatment for bronchitis - CXR 09/08: Clear lung cain; CT abdomen 09/08: without acute findings - UA dirty with 3+ LE and TNTC WBC, 2+ bacterai - Blood cultures and Urine cultures pending - c/w Ciprofloxacin and Flagyl (Day #2) 3. s/p Lactic acidosis - possibly from sepsis, possibly from dehydration / hypovolemia - s/p Normal saline 4. CHUY - likely pre-renal etiology - Baseline Cr of 0.9 to 1.3 - Cr has trended down from admission - s/p NS 5. Hypernatremia - Na of 149 at this time - Was switched from NS to D5 08/23 NS - Switched to D5W - Will repeat CMP at 12PM today 6. Hypothyroidism - c/w Synthroid 7. Depression - Not on medications - held from admission 8. GI prophylaxis - will start famotidine 9. DVT prophylaxis - c/w heparin Code Status: - DNR/DNI - Was no fluid / IV antibiotics - however discussion with Son (Stew: [phone]) and was advised to have a trial Disposition: - Guarded pending improvement of mental status VS,Fishbone, I+O VS, Fishbone, I+O Laboratory Tests 09/08/16 16:09 Red Blood Count 4.23, Mean Corpuscular Volume 95.4, Mean Corpuscular Hemoglobin 29.2, Mean Corpuscular Hemoglobin Concent 30.6 L, Red Cell Distribution Width 14.8 H, Neutrophils (%) (Auto) , Lymphocytes (%) (Auto) , Monocytes (%) (Auto) , Eosinophils (%) (Auto) , Basophils (%) (Auto) , Neutrophils # (Auto) , Lymphocytes # (Auto) , Monocytes # (Auto) , Eosinophils # (Auto) , Basophils # ( Auto) 09/08/16 16:57 09/09/16 05:23 Red Blood Count 3.98 L, Mean Corpuscular Volume 92.8, Mean Corpuscular Hemoglobin 29.6, Mean Corpuscular Hemoglobin Concent 31.9 L, Red Cell Distribution Width 14.1, Neutrophils (%) (Auto) 76.2 H, Lymphocytes (%) (Auto) 18.4 L, Monocytes (%) (Auto) 3.8, Eosinophils (%) (Auto) 0.3, Basophils (%) ( Auto) 0.2, Neutrophils # (Auto) 8.2 H, Lymphocytes # (Auto) 2.0, Monocytes # ( Auto) 0.4, Eosinophils # (Auto) 0.0, Basophils # (Auto) 0.0, Anion Gap 6 L Vital Signs Date Time Temp Pulse Resp B/P Pulse Ox O2 Delivery O2 Flow Rate FiO2 09/09/16 12:00 96.0 64 18 136/63 90 Nasal Cannula 2.0 I&O- Last 24 Hours up to 6 AM 09/09/16 06:00 Intake Total 175 ml Output Total 0 ml Balance 175 ml MARIA E LANDAVERDE MD Sep 09, 2016 13:03
[2016-09-09] MEDS ORDERED: D5W/0.45% SODIUM CHLORIDE 1,000 ML IV SCH (13:15)
[2016-09-09] MEDS: cefTRIAXone SOD 1 GM in D5W MINI-BAG PLUS 50 ML IV SCH (15:13)
[2016-09-09 16:00] VITALS: BP 130/60
[2016-09-09] MEDS ORDERED: diphenhydrAMINE INJ 50MG/ML VIAL (J1200) IV ONE (17:00)
[2016-09-09 20:09] VITALS: BP 120/54
[2016-09-09] MEDS ORDERED: FAMOTIDINE 20 MG TAB PO SCH (21:00)
[2016-09-09 23:29] VITALS: BP 130/72
[2016-09-10] MEDS: IPRATROPIUM 0.5MG/ALBUTEROL 2.5MG INH SOL UD 3ML (DUONEB)(J7620) NEB SCH ×2 (01:28→07:07)
[2016-09-10] MEDS: cefTRIAXone SOD 1 GM in D5W MINI-BAG PLUS 50 ML IV SCH (02:51)
[2016-09-10 04:13] VITALS: BP 128/68
[2016-09-10 06:01] LABS: BASO % 0.2 % (0.0-1.0); EOS % 0.2 % (0.0-3.0); LARGE UNSTAINED CELL # 0.1 K/mm3 (0.0-0.4); LARGE UNSTAINED CELL % 1.5 % (0.0-4.0); LYMPH # 1.7 K/mm3 (1.5-4.5); LYMPH % 19.2 % (24.0-44.0); MEAN CORPUSCULAR HEMOGLOBIN 29.2 pg (27.0-33.0); MEAN CORPUSCULAR HGB CONC 31.3 g/dl (32.0-36.5); MEAN CORPUSCULAR VOLUME 93.4 fl (80.0-96.0); MONO # 0.4 K/mm3 (0.0-0.8); MONO % 4.9 % (0.0-5.0); NEUTROPHILS # 6.6 K/mm3 (1.8-7.7); NEUTROPHILS % 73.9 % (36.0-66.0); PLATELET COUNT, AUTOMATED 115 k/mm3 (150-450); RED CELL DISTRIBUTION WIDTH 14.1 % (11.5-14.5); WHITE BLOOD COUNT 8.9 K/mm3 (4.0-10.0)
[2016-09-10] MEDS: HEPARIN SOD (PORCINE) 5000 UNITS/ML VIAL SC SCH (06:05)
[2016-09-10 06:17] LABS: ALBUMIN 2.6 GM/DL (3.2-5.2); CALCIUM LEVEL 8.9 MG/DL (8.8-10.2); CREATININE FOR GFR 1.07 MG/DL (0.55-1.02); GLOMERULAR FILTRATION RATE 51.8 (>32); MAGNESIUM LEVEL 2.1 MG/DL (1.8-2.4); PHOSPHORUS LEVEL 1.9 MG/DL (2.5-4.9)
[2016-09-10] MEDS ORDERED: D5W 1,000 ML IV SCH (07:30)
[2016-09-10 08:00] VITALS: BP 154/79
[2016-09-10] MEDS: metroNIDAZOLE 500 MG in APPROPRIATE DILUENT 1 EA IV SCH (08:56)
[2016-09-10] MEDS: LEVOTHYROXINE 100 MCG (0.1MG) VIAL IV SCH (08:56)
[2016-09-10] MEDS ORDERED: MORPHINE 10 MG PR PRN (11:45)
[2016-09-10] MEDS ORDERED: ACETAMINOPHEN TAB 650MG DOSE (2X325MG) XX PRN (11:45)
[2016-09-10] MEDS ORDERED: ACETAMINOPHEN 650 MG SUPP PR PRN (11:45)
[2016-09-10] MEDS: SCOPOLAMINE 1.5 MG TRANSDERMAL TD PRN (12:09)
[2016-09-10] MEDS: LORazepam 1 MG TAB PO PRN ×2 (12:59→16:52)
--- NOTE | 2016-09-10 14:55 | IPNPDOC ---
Text Note Date of Service The patient was seen on 09/10/16 at 14:42. NOTE Subjective: Patient is an 85 year old female with a PMHx HTN Hypothyroidism, Advanced Dementia, First degree AV oracio, Depression, GERD, Osteoporosis, and History of diverticulosis who presented from for abdominal pain and projectile vomiting. Patient was reportedly being treated for bronchitis and COPD exacerbation. At the [place] patient experienced vomiting of 3 episodes and may have had diarrhea as well, she was then transferred to [facility] for further evaluation. Patient was seen and examined at the bedside. Patient remains non-verbal. Patient went for swallow evaluation this morning which reveals that she only had the passive ability to swallow; recommendation was for strict NPO. Review of the patinet's MOLST form shows she did not want to have Feeding tubes placed. I have discussed with the health care proxy; Stew Navarrete (Son) and advised them of the findings. He was agreed that comfort measures only (TOLL TEST DESK WORKER) at this time was the best option for his mother. He has called his sister, who I have also spoken with and she has agreed as well. Objective: Vitals (See below) General: Lying in bed, no acute distress, comfortable, awake, drowsy, not oriented at all HEENT: NC, AT CVS: RRR, +S1S2 Lungs: Fair air entry b/l, + Ronchi / crackles Abdomen: Soft, ND, NT, +BSx4 Extremities: +PPx4, -edema, - calf tenderness Assessment and plan: 1. Sepsis - likely 2/2 intraabdominal etiology - likely 2/2 UTI, possible gastroenteritis - Leukocytosis resolving, remains afebrile - Appears patient was septic on admission - Elevated lactic acid - has trended down - qSOFA score of 2 - recent history of cough - treatment for bronchitis - CXR 09/08: Clear lung cain; CT abdomen 09/08: without acute findings - UA dirty with 3+ LE, and TNTC, WBC, 2+ bacteria - Blood cultures negative - Urine cultures positive for Proteus Mirabilis - c/w Ciprofloxacin and Flagyl (Day #2) 2. s/p Abdominal pain with nausea and vomiting, with possible diarrhea - likely 2/2 infectious etiology (possible gastroenteritis), less likely obstruction, likely 2/2 UTI - No episodes of nausea, vomiting or diarrhea, physical does not reveal any abdominal tenderness at this time - CT abdomen 09/08: cholelithiasis, no cholecystitis, bilateral renal cortical cysts, no other acute intra-abdominal pelvic abnormality identified - GI panel pending - Swallow study complete - NPO strict; only passive ability to swallow - c/w Zofran for nausea - c/w Ceftriaxone and Flagyl (Day #3) - s/p Ciprofloxacin 3. s/p Lactic acidosis - possibly from sepsis, possibly from dehydration / hypovolemia - s/p Normal saline 4. CHUY - likely pre-renal etiology - Baseline Cr of 0.9 to 1.3 - Cr has trended down from admission - s/p NS 5. Hypernatremia - Na of 149 at this time - Was switched from NS to D5 1/2 NS - d/c D5W - re: course lung sounds (fluid overload) 6. Hypothyroidism - c/w Synthroid 7. Depression - Not on medications - held from admission 8. GI prophylaxis - will start famotidine 9. DVT prophylaxis - c/w heparin Code Status: - DNR/DNI - Was no fluid / IV antibiotics - however discussion with Son (Stew: [phone]) and was advised to have a trial Disposition: - Discussed with son (Stew) advised him of the swallow eval and the MOLST form of no feeding tube; advised that this may be the progression of dementia - Agreed that the patient did not want to have a feeding tube - Patient was made TOLL TEST DESK WORKER VS,Fishbone, I+O VS, Fishbone, I+O Laboratory Tests 09/10/16 05:25 Anion Gap 5 L, Red Blood Count 3.72 L, Mean Corpuscular Volume 93.4, Mean Corpuscular Hemoglobin 29.2, Mean Corpuscular Hemoglobin Concent 31.3 L, Red Cell Distribution Width 14.1, Neutrophils (%) (Auto) 73.9 H, Lymphocytes (%) ( Auto) 19.2 L, Monocytes (%) (Auto) 4.9, Eosinophils (%) (Auto) 0.2, Basophils (% ) (Auto) 0.2, Neutrophils # (Auto) 6.6, Lymphocytes # (Auto) 1.7, Monocytes # ( Auto) 0.4, Eosinophils # (Auto) 0.0, Basophils # (Auto) 0.0 Vital Signs Date Time Temp Pulse Resp B/P Pulse Ox O2 Delivery O2 Flow Rate FiO2 09/10/16 08:00 96.8 92 20 154/79 95 Nasal Cannula 2.0 I&O- Last 24 Hours up to 6 AM 09/10/16 06:00 Intake Total 930 ml Output Total 0 ml Balance 930 ml MARIA E LANDAVERDE MD Sep 10, 2016 14:55
--- NOTE | 2016-09-10 23:58 | EDDOCDS ---
Physician Documentation [facility] Name: Margo Navarrete Age: 85 yrs Sex: Female : 1930 Arrival Date: 09/08/2016 Time: 15:46 Bed 5 Private MD: Kristin Lazar E Disposition: 09/08/16 19:15 Hospitalization ordered by Stew Richards for Inpatient Admission. Preliminary diagnosis is Urinary tract infection, site not specified. - Bed requested for PCU. - Status is Inpatient Admission. nn1 - Condition is Stable. - Problem is an acute exacerbation. - Symptoms are unchanged. Historical: - Allergies: no known allergies; - Home Meds: 1. albuterol sulfate 2.5 mg /3 mL (0.083 %) Nebulizer nebu 4 times per day 2. prednisone 20 mg Oral tab 2 tabs once daily 3. Senna-S 8.6-50 mg oral tab 4. Zebeta 5 mg oral tab 5. Zoloft 25 mg Oral tab 1 tab once daily 6. levothyroxine 125 mcg Oral tab 1 tab once daily 7. ipratropium-albuterol 20-100 mcg/actuation Inhl mist 8. acetaminophen 325 mg Oral tab 2 tabs 9. sorbitol 70 % miscellaneous soln 10. aspirin 81 mg Oral tab 11. Lasix 20 mg Oral tab 1 tab once daily 12. Dulcolax (bisacodyl) 5 mg Oral TbEC 1 tab 13. Milk of Magnesia 400 mg/5 mL Oral susp - PMHx: CKD stage 3; Hypothyroidism; COPD; Dementia; Alzheimers; dysphagia; - PSHx: Unable to obtain; - Social history: Smoking status: unknown if patient ever smoked tobacco. non-verbal. - Family history: No immediate family members are acutely ill. - : The pt / caregiver states he / she is not on anticoagulants. Home medication list is obtained from the facility OCT. - Exposure Risk Screening:: Recent exposure to bronchitis. Vital Signs: 09/08 16:47 BP 114 / 72; Pulse 91; Resp 20; Temp 98.0(TE); Pulse Ox 93% on 4 lpm NC; Height 5 ft. 6 nr1 in. (167.64 cm); 17:00 Pulse 78 MON; Pulse Ox 94% ; ttb 17:30 Pulse 80 MON; Pulse Ox 95% ; ttb 18:00 Pulse 78 MON; Pulse Ox 94% ; ttb 18:49 BP 173 / 82 (auto/); ttb 18:49 Pulse 76 MON; Resp 20; Pulse Ox 93% on 2 lpm NC; Pain 0/10; ttb 21:17 BP 142 / 83; Pulse 82; Resp 18; Temp 98.2(TE); Pulse Ox 93% on R/A; mdr 22:30 BP 183 / 78; Pulse 79; Resp 20; Temp 98(TE); Pulse Ox 94% on 2 lpm NC; nn1 MDM: 16:14 -Blood Culture (Adults Only), peripheral from different site, or from device/port/PICC ke etc. if present ordered. 16:14 IV Saline Lock ordered. ke 16:14 Undress patient appropriately for examination ordered. ke 16:14 Straight cath ordered. ke 16:14 NS 0.9% 1000 ml IV at 250 mL/hr continuous ordered. ke 16:15 Amylase Ordered. EDMS 16:15 Basic Metabolic Profile Ordered. EDMS 16:15 CBC with Diff Ordered. EDMS 16:15 Lipase Ordered. EDMS 16:15 Liver Profile Ordered. EDMS 16:15 Prothrombin Time Profile\E\INR Ordered. EDMS 16:15 Urinalysis Ordered. EDMS 16:15 Lactic Acid (Stout tube on ice) Ordered. EDMS 16:15 Urine Culture Ordered. EDMS 16:16 Abdomen, Flat\E\Upright,PA Chest Ordered. EDMS 16:16 NOTHING BY MOUTH+DIET ordered. EDMS 16:28 DIFFERENTIAL NO CHARGE Ordered. EDMS 16:39 -Blood Culture (Adults Only), peripheral from different site, or from device/port/PICC lbd etc. if present complete. 16:41 BLOOD CULTURES Ordered. EDMS 16:58 Financial registration complete. zo 16:59 [facility] [place] into [employer] and attached to record. zo 18:27 Basic Metabolic Profile Reviewed. ke 18:27 CBC with Diff Reviewed. ke 18:27 Liver Profile Reviewed. ke 18:27 Prothrombin Time Profile\E\INR Reviewed. ke 18:27 Urinalysis Reviewed. ke 18:27 Lactic Acid (Stout tube on ice) Reviewed. ke 18:27 Amylase Reviewed. ke 18:27 Lipase Reviewed. ke 18:27 PLATELET ESTIMATE Reviewed. ke 18:27 Abdomen, Flat\E\Upright,PA Chest Reviewed. ke 18:33 Ciprofloxacin 400 mg IVPB at 200 mL/hr once over 60 mins ordered. ke 18:34 BED REQUEST+ADM ordered. EDMS 20:21 NPO DIET ordered. EDMS 20:23 Admission / Observation Status ordered. EDMS 20:23 CT ABD & PELVIS W/O CONTRAST Ordered. EDMS 20:24 LACTIC ACID LEVEL, LACTATE Ordered. EDMS 20:24 CBC WITH DIFFERENTIAL Ordered. EDMS 20:24 RENAL PROFILE Ordered. EDMS 20:24 MAGNESIUM LEVEL Ordered. EDMS 20:24 INFLUENZA A&B RAPID ANTIGEN Ordered. EDMS 21:21 OSMOLALITY,URINE Ordered. EDMS 21:21 SODIUM,RANDOM URINE Ordered. EDMS 22:25 THYROID STIMULATING HORMONE Ordered. EDMS 09/09 11:22 T-Sheet-- Draft Copy was scanned into [employer] and attached to record. gb 11: PCR was scanned into [employer] and attached to record. gb Administered Medications: 09/08 17:21 Drug: NS 0.9% 1000 ml [sodium chloride 0.9 % intravenous solution] Route: IV; Rate: 250 ttb mL/hr; Site: left antecubital; 18:48 Drug: Ciprofloxacin 400 mg [ciprofloxacin 400 mg/200 mL in 5 % dextrose intravenous nr1 piggyback] Route: IVPB; Rate: 200 mL/hr; Infused Over: 60 mins; Site: left antecubital; 20:00 Follow up: Response: No Adverse Reaction; No significant change.; IV Status: Completed ttb infusion Signatures: Dispatcher [employer] EDKS Becky Díaz, Cylinder Gr[employer] Aliyah Wynne RN RN daTaylor Knutson, Jonathan Reg gb Vikas Patterson, PREPRESS SPECIALIST PREPRESS SPECIALIST Niki Patel Nicole, RN RN nr1 Maxwell Sunshine RN RN brice1 Arin Price RN ttb The chart was reviewed and I authenticate all verbal orders and agree with the evaluation and treatment provided.Attachments: 16:59 [facility] Payment Agreement zo 09/09 11:22 T-Sheet-- Draft Copy gb Chart Complete MTDD
--- NOTE | 2016-09-10 23:58 | EDDOCDS ---
Nurse's Notes [facility] Name: Margo Navarrete Age: 85 yrs Sex: Female : 1930 Arrival Date: 09/08/2016 Time: 15:46 Bed 5 Private MD: Kristin Lazar E Diagnosis: Urinary tract infection, site not specified Presentation: 09/08 15:47 Presenting complaint: EMS states: c/o diarrhea since last night with nausea and nr1 projectile vomiting starting this morning. A few days ago diagnosed with bronchitis. 4mg Zofran IV given en route. Adult Sepsis Screening: The patient does not have new or worsening altered mentation. Patient's respiratory rate is less than 22. Suicide/Homicide risk assessment- the patient denies having any suicidal and/or homicidal ideations and does not present with any other emotional, behavioral or mental health complaints. 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 Transition of care: patient was received from [facility]. 15:47 Acuity: SHENA Level 3 nr1 15:47 Method Of Arrival: Ambulance nr1 22:33 Adult Sepsis Screening: Systolic blood pressure is greater than 100. Patient has a nn1 qSOFA score of 0- Negative Sepsis Screen. Triage Assessment: 15:47 General: Appears ill. nr1 16:34 Pain: Location: abdomen Unable to use pain scale. patient non-verbal. Grimaced when nr1 upper abdomen palpated. The patient is triaged at the bedside. See Assessment in Nurses Notes section of ED record. Respiratory: Airway is patent Respiratory effort is even, labored, Respiratory pattern is regular, symmetrical. GI: Abdomen is obese, Bowel sounds present X 4 quads. Abd is soft X 4 quads Abd is tender to palpation in right upper quadrant and left upper quadrant. Historical: - Allergies: no known allergies; - Home Meds: 1. albuterol sulfate 2.5 mg /3 mL (0.083 %) Nebulizer nebu 4 times per day 2. prednisone 20 mg Oral tab 2 tabs once daily 3. Senna-S 8.6-50 mg oral tab 4. Zebeta 5 mg oral tab 5. Zoloft 25 mg Oral tab 1 tab once daily 6. levothyroxine 125 mcg Oral tab 1 tab once daily 7. ipratropium-albuterol 20-100 mcg/actuation Inhl mist 8. acetaminophen 325 mg Oral tab 2 tabs 9. sorbitol 70 % miscellaneous soln 10. aspirin 81 mg Oral tab 11. Lasix 20 mg Oral tab 1 tab once daily 12. Dulcolax (bisacodyl) 5 mg Oral TbEC 1 tab 13. Milk of Magnesia 400 mg/5 mL Oral susp - PMHx: CKD stage 3; Hypothyroidism; COPD; Dementia; Alzheimers; dysphagia; - PSHx: Unable to obtain; - Social history: Smoking status: unknown if patient ever smoked tobacco. non-verbal. - Family history: No immediate family members are acutely ill. - : The pt / caregiver states he / she is not on anticoagulants. Home medication list is obtained from the facility OCT. - Exposure Risk Screening:: Recent exposure to bronchitis. Screenin:49 Screening information is obtained from prior medical records. Fall risk: At risk due to nr1 age, gait disturbance, immobility. Assistance ADL's: Requires assistance with meal preparation, this assistance is provided by bathing, assistance is provided by dressing, assistance is provided by toileting, assistance is provided by ambulation, assistance is provided by housework, assistance is provided by medication administration, assistance is provided by residence staff. Abuse/DV Screen: The patient / caregiver reports he/she is: pt cannot be assessed for living situation at this time. Nutritional screening: Unable to Assess. Advance Directives: There is an active DNR order and the pt has a copy here at this time. home support is adequate. Assessment: 16:49 General: Appears ill, obese, Behavior is uncooperative, non-verbal. . Pain: Location: nr1 left upper quadrant and right upper quadrant Pain. Neurological: Level of Consciousness is lethargic, Oriented to unable to assess. Cardiovascular: Capillary refill < 3 seconds Rhythm is sinus rhythm No ectopy. Respiratory: Airway is patent Respiratory effort is even, unlabored, Respiratory pattern is regular, symmetrical. GI: Abdomen is obese, Abd is soft Abd is tender to palpation in left upper quadrant and right upper quadrant. : Urine is cloudy, frannie blood. 17:00 General: Appears in no apparent distress, comfortable, to be sleeping. Cardiovascular: ttb Heart tones S1 S2 present Rhythm is sinus rhythm No ectopy. Respiratory: Airway is patent Respiratory effort is even, unlabored, Breath sounds with rhonchi expiratory bilaterally. GI: Abdomen is non- distended obese, Bowel sounds present X 4 quads. Derm: Skin is pale. Injury Description: No known injury. 18:00 General: Appears in no apparent distress, comfortable. Pain: Unable to use pain scale. ttb Patient appears quiet. Neurological:. Respiratory: Airway is patent Respiratory effort is even, unlabored. 18:00 Adult Sepsis Screening: Patient has new or worsening altered mentation (1 point). ttb Patient's respiratory rate is less than 22. Systolic blood pressure is greater than 100. Patient has a qSOFA score of 0- Negative Sepsis Screen. 19:00 Reassessment: Patient appears in no apparent distress at this time. pt resting on ttb stretcher. NAD noted. Intermittent movement. IVF's infusing.. Respiratory: Airway is patent Respiratory effort is even, unlabored. 20:00 General: hospitalist in with pt at this time. Pt remains unresponsive verbally. Moving ttb intermittently. Responds to physical stimuli and voice. Cipro completed. IVF's infusing.. Respiratory: Airway is patent Respiratory effort is even, unlabored, Respiratory pattern is regular, symmetrical. 20:00 GI: other no v/n/d since arrival to ED. : incont of urine. ttb 20:10 Adult Sepsis Screening: Patient has new or worsening altered mentation (1 point). ttb Patient's respiratory rate is less than 22. Systolic blood pressure is greater than 100. Patient has a qSOFA score of 1- Negative Sepsis Screen. 20:58 General: Appears in no apparent distress, Behavior is quiet. General: lab in drawing pt ttb at this time. NAD noted. Pt to be transferred to floor.. Cardiovascular: Rhythm is sinus rhythm. Respiratory: Airway is patent Respiratory effort is even, unlabored. 21:01 General: Report given to next RN to continue care. . ttb 22:31 General: Behavior is restless. Neurological: Level of Consciousness is lethargic, nn1 Oriented to patient nonverbal . Respiratory: Airway is patent Respiratory effort is even, unlabored, Respiratory pattern is regular, symmetrical. Derm: Skin is pale. Vital Signs: 16:47 BP 114 / 72; Pulse 91; Resp 20; Temp 98.0(TE); Pulse Ox 93% on 4 lpm NC; Height 5 ft. 6 nr1 in. (167.64 cm); 17:00 Pulse 78 MON; Pulse Ox 94% ; ttb 17:30 Pulse 80 MON; Pulse Ox 95% ; ttb 18:00 Pulse 78 MON; Pulse Ox 94% ; ttb 18:49 BP 173 / 82 (auto/); ttb 18:49 Pulse 76 MON; Resp 20; Pulse Ox 93% on 2 lpm NC; Pain 0/10; ttb 21:17 BP 142 / 83; Pulse 82; Resp 18; Temp 98.2(TE); Pulse Ox 93% on R/A; mdr 22:30 BP 183 / 78; Pulse 79; Resp 20; Temp 98(TE); Pulse Ox 94% on 2 lpm NC; nn1 Vitals: 16:34 Log In Time N/A - ambulance arrival. nr1 ED Course: 15:47 Patient visited by Becky Díaz, Regulatory Analyst. lbd 15:47 Kristin Lazar is Private Physician. lbd 15:47 Quin Rivera,DERRICK is Primary Nurse. lbd 15:47 Patient moved to Waiting lbd 15:47 Patient moved to 5 lbd 15:51 Triage Initiated nr1 15:59 [facility] ke 16:00 Patient visited by Vikas Patterson FNP. ke 16:04 Patient visited by Vikas Patterson FNP. ke 16:32 Patient visited by Vikas Pattreson FNP. ke 16:37 Patient visited by Fiorella Chatterjee,DERRICK. nr1 16:49 The patient / caregiver is instructed regarding the plan of care and ED course. Patient nr1 has correct armband on for positive identification. Placed in gown. environmental monitoring specialist on. Pulse ox on. NIBP on. 16:49 Maintain field IV. Dressing intact. Good blood return noted. Site clean & dry. Gauge & nr1 site: 18g left AC. 16:53 Urinalysis Sent. ttb 16:53 Urine Culture Sent. ttb 16:55 Patient visited by Fiorella Chatterjee,DERRICK. nr1 16:58 Patient name changed from Margo\S\\S\Landon\S\ to Margo\S\ \S\Landon. EDMS 16:59 [facility] Payment Agreement was scanned into [employer] and attached to record. zo 17:00 DIFFERENTIAL NO CHARGE Sent. cln 17:00 Prothrombin Time Profile\E\INR Sent. cln 17:00 Labs drawn. (by ED staff). Labs/Blood culture drawn Urine collected. straight cath ttb specimen. 17:27 Patient visited by Vikas Patterson FNP. ke 17:46 Abdomen, Flat\E\Upright,PA Chest Returned. EDMS 17:49 Patient visited by Vikas Patterson FNP. ke 18:07 Patient visited by Vikas Patterson FNP. ke 18:26 Primary Nurse role handed off by Quin Rivera,DERRICK [facility] 18:38 Patient visited by Vikas Patterson FNP. ke 18:42 Fiorella Chatterjee,DERRICK is Primary Nurse. nr1 18:55 Patient visited by Arin Price RN. ttb 19:15 Stew Richards MD is Hospitalizing Provider. ke 20:10 Patient visited by Arin Price RN. ttb 21:01 Patient visited by Arin Price RN. ttb 21:43 CT ABD & PELVIS W/O CONTRAST Returned. EDMS 22:31 No procedures done that require assistance. nn1 09/09 11:22 T-Sheet-- Draft Copy was scanned into [employer] and attached to record. gb 11:22 PCR was scanned into [employer] and attached to record. gb Administered Medications: 09/08 17:21 Drug: NS 0.9% 1000 ml [sodium chloride 0.9 % intravenous solution] Route: IV; Rate: 250 ttb mL/hr; Site: left antecubital; 18:48 Drug: Ciprofloxacin 400 mg [ciprofloxacin 400 mg/200 mL in 5 % dextrose intravenous nr1 piggyback] Route: IVPB; Rate: 200 mL/hr; Infused Over: 60 mins; Site: left antecubital; 20:00 Follow up: Response: No Adverse Reaction; No significant change.; IV Status: Completed ttb infusion Order Results: Lab Order: Amylase; SPEC'M 09/08/16 16:57 Test: AMYLASE; Value: 60; Range: 25-115; Units: U/L; Status: F Lab Order: Basic Metabolic Profile; SPEC'M 09/08/16 16:57 Test: GLUCOSE, FASTING; Value: 137; Range: 83-110; Abnormal: Above high normal; Units: MG/DL; Status: F Test: BLOOD UREA NITROGEN; Value: 57; Range: 7-18; Abnormal: Above high normal; Units: MG/DL; Status: F Test: CREATININE FOR GFR; Value: 1.57; Range: 0.55-1.02; Abnormal: Above high normal; Units: MG/DL; Status: F Test: GLOMERULAR FILTRATION RATE; Value: 33.3; Range: >32; Status: F Test: SODIUM LEVEL; Value: 148; Range: 136-145; Abnormal: Above high normal; Units: MEQ/L; Status: F Test: POTASSIUM SERUM; Value: 4.3; Range: 3.5-5.1; Units: MEQ/L; Status: F Test: CHLORIDE LEVEL; Value: 108; Range: 98-107; Abnormal: Above high normal; Units: MEQ/L; Status: F Test: CARBON DIOXIDE LEVEL; Value: 33; Range: 21-32; Abnormal: Above high normal; Units: MEQ/L; Status: F Test: ANION GAP; Value: 7; Range: 8-16; Abnormal: Below low normal; Units: MEQ/L; Status: F Test: CALCIUM LEVEL; Value: 9.1; Range: 8.8-10.2; Units: MG/DL; Status: F Test Note: ; Units are mL/min/1.73 m2 Chronic Kidney Disease Staging per NKF: Stage I & II GFR >=60 Normal to Mildly Decreased Stage III GFR 30-59 Moderately Decreased Stage IV GFR 15-29 Severely Decreased Stage V GFR <15 Very Little GFR Left ESRD GFR <15 on [employer]PERATIONS [employer]PER[employer] Lab Order: CBC with Diff; SPEC'M 09/08/16 16:09 Test: WHITE BLOOD COUNT; Value: 15.6; Range: 4.0-10.0; Abnormal: Above high normal; Units: K/mm3; Status: F Test: RED BLOOD COUNT; Value: 4.23; Range: 4.00-5.40; Units: M/mm3; Status: F Test: HEMOGLOBIN; Value: 12.3; Range: 12.0-16.0; Units: g/dl; Status: F Test: HEMATOCRIT; Value: 40.4; Range: 36.0-47.0; Units: %; Status: F Test: MEAN CORPUSCULAR VOLUME; Value: 95.4; Range: 80.0-96.0; Units: fl; Status: F Test: MEAN CORPUSCULAR HEMOGLOBIN; Value: 29.2; Range: 27.0-33.0; Units: pg; Status: F Test: MEAN CORPUSCULAR HGB CONC; Value: 30.6; Range: 32.0-36.5; Abnormal: Below low normal; Units: g/dl; Status: F Test: RED CELL DISTRIBUTION WIDTH; Value: 14.8; Range: 11.5-14.5; Abnormal: Above high normal; Units: %; Status: F Test: PLATELET COUNT, AUTOMATED; Value: 145; Range: 150-450; Abnormal: Below low normal; Units: k/mm3; Status: F Test: NEUTROPHILS; Value: 88; Range: 35-75; Abnormal: Above high normal; Units: %; Status: F Test: BANDS; Value: 3; Range: < 11; Units: %; Status: F Test: LYMPHOCYTES; Value: 6; Range: 16-52; Abnormal: Below low normal; Units: %; Status: F Test: MONOCYTES; Value: 3; Range: 0-8; Units: %; Status: F Test: RBC MORPHOLOGY; Value: NORMAL; Status: F Lab Order: Lipase; SPEC'M 09/08/16 16:57 Test: LIPASE; Value: 208; Range: 73-393; Units: U/L; Status: F Lab Order: Liver Profile; SPEC'M 09/08/16 16:57 Test: AST/SGOT; Value: 40; Range: 15-37; Abnormal: Above high normal; Units: U/L; Status: F Test: ALT/SGPT; Value: 34; Range: 12-78; Units: U/L; Status: F Test: ALKALINE PHOSPHATASE; Value: 86; Range: 45-117; Units: U/L; Status: F Test: BILIRUBIN,TOTAL; Value: 0.2; Range: 0.2-1.0; Units: MG/DL; Status: F Test: BILIRUBIN,DIRECT; Value: < 0.1; Range: 0.0-0.2; Units: MG/DL; Status: F Test: TOTAL PROTEIN; Value: 8.2; Range: 6.4-8.2; Units: GM/DL; Status: F Test: ALBUMIN; Value: 3.2; Range: 3.2-5.2; Units: GM/DL; Status: F Test: ALBUMIN/GLOBULIN RATIO; Value: 0.64; Range: 1.00-1.93; Abnormal: Below low normal; Status: F Lab Order: Prothrombin Time Profile\E\INR; [facility] 09/08/16 16:57 Test: PROTHROMBIN TIME; Value: 12.2; Range: 12.3-14.5; Abnormal: Below low normal; Units: SECONDS; Status: F Test: INR; Value: 0.89; Status: F Test Note: ; THERAPUTIC HUMAN INR VALUES INDICATIONS NORMAL RANGES PROPHYLAXIS/TREATMENT OF: VENOUS THROMBOSIS 2.0-3.0 PULMONARY EMBOLISM 2.0-3.0 PREVENTION OF SYSTEMIC EMBOLISM FROM: TISSUE HEART VALVES 2.0-3.0 ACUTE MYOCARDIAL INFARCTION 2.0-3.0 VALVULAR HEART DISEASE 2.0-3.0 ATRIAL FIBRILLATION 2.0-3.0 MECHANICAL VALVES(HIGH RISK) 2.5-3.5 RECURRENT MYOCARDIAL INFARCTION 2.5-3.5 Lab Order: Urinalysis; [facility] 09/08/16 16:46 Test: APPEARANCE, URINE; Value: CLOUDY; Range: CLEAR; Abnormal: Above high normal; Status: F Test: COLOR, URINE; Value: YELLOW; Range: YELLOW; Status: F Test: PH,URINE; Value: 5.0; Range: 5.0-9.0; Units: UNITS; Status: F Test: SPECIFIC GRAVITY URINE AUTO; Value: 1.016; Range: 1.002-1.035; Status: F Test: PROTEIN, URINE AUTO; Value: 2+; Range: NEGATIVE; Abnormal: Above high normal; Units: mg/dL; Status: F Test: GLUCOSE, URINE (UA) AUTO; Value: NEGATIVE; Range: NEGATIVE; Units: mg/dL; Status: F Test: KETONE, URINE AUTO; Value: NEGATIVE; Range: NEGATIVE; Units: mg/dL; Status: F Test: UROBILINOGEN, URINE AUTO; Value: 0.2; Range: 0.0-2.0; Units: mg/dL; Status: F Test: BILIRUBIN, URINE AUTO; Value: NEGATIVE; Range: NEGATIVE; Status: F Test: NITRITE, URINE AUTO; Value: NEGATIVE; Range: NEGATIVE; Status: F Test: LEUKOCYTE ESTERASE, URINE AUTO; Value: 3+; Range: NEGATIVE; Abnormal: Above high normal; Status: F Test: BLOOD, URINE BLOOD; Value: 3+; Range: NEGATIVE; Abnormal: Above high normal; Status: F Test: WBC, URINE AUTO; Value: TNTC; Range: 0-3; Abnormal: Above high normal; Units: /HPF; Status: F Test: RBC, URINE AUTO; Value: TNTC; Range: 0-3; Abnormal: Above high normal; Units: /HPF; Status: F Test: BACTERIA, URINE AUTO; Value: 2+; Range: NEGATIVE; Abnormal: Above high normal; Status: F Test: SQUAMOUS EPITHELIAL CELL UR AU; Value: 1; Range: 0-6; Units: /HPF; Status: F Test: MUCUS, URINE; Value: SMALL; Range: NEGATIVE; Status: F Test: HYALINE CAST, URINE AUTO; Value: 11; Range: 0-1; Units: /LPF; Status: F Test: AMORPHOUS SEDIMENT; Value: SMALL; Range: NEGATIVE; Abnormal: Above high normal; Status: F Lab Order: Lactic Acid (Stout tube on ice); SPEC'M 09/08/16 16:09 Test: LACTIC ACID LEVEL, LACTATE; Value: 2.3; Range: 0.4-2.0; Abnormal: Above upper panic limits; Units: MMOL/L; Status: F Lab Order: PLATELET ESTIMATE; SPEC'M 09/08/16 16:09 Test: PLATELET ESTIMATE; Value: NORMAL; Range: NORMAL; Status: F Lab Order: LACTIC ACID LEVEL, LACTATE; SPEC'M 09/08/16 20:56 Test: LACTIC ACID LEVEL, LACTATE; Value: 1.3; Range: 0.4-2.0; Units: MMOL/L; Status: F Radiology Order: Abdomen, Flat\E\Upright,PA Chest Test: Abdomen, Flat\E\Upright,PA Chest REASON FOR EXAMINATION: Abdomen Pain; Acute abdominal series, three views including AP Supine chest and supine and; cross table lateral abdomen:; ; PA chest:; ; Comparison is 09/06/2016.; ; The study is performed with the patient AP supine, precluding evaluation for free; subdiaphragmatic air.; ; ; ; The lung cain are over penetrated but appear clear.; ; No pleural effusions are identified. Cardiac size is normal. There are; Flores rods in the thoracic spine.; ; Impression:; ; No acute cardiopulmonary findings.; ; ; ; ; ; Abdomen, supine and cross-table lateral views:; ; No free intraperitoneal air is identified on the cross-table lateral view.; ; The bowel gas pattern appears normal. There are pelvic calcifications, likely; phleboliths. There is internal fixation of the left hip.; ; Impression:; ; Normal bowel gas pattern.; ; ; Signed by; Angelo Kerns MD 09/08/2016 05:15 P; Radiology Order: CT ABD & PELVIS W/O CONTRAST Test: CT ABD & PELVIS W/O CONTRAST REASON FOR EXAMINATION: abdominal pain; ; CLINICAL HISTORY: Abdominal pain; TECHNIQUE: CT of the abdomen and pelvis was performed without intravenous contrast by obtaining mary lou; guous CT axial slices from level of the heart to the proximal femoral diaphyses. Multiplanar reformat; s were obtained in the coronal and sagittal projections.; COMPARISON: None; FINDINGS :; LOWER CHEST: The lung bases demonstrate linear lower lobe atelectasis otherwise are unremarkable. Hea; rt is normal in size. No pleural or pericardial effusion is seen.; LIVER: The liver is normal in size and contour.; BILIARY SYSTEM: Cholelithiasis noted without findings of acute cholecystitis. No intrahepatic biliary; ductal dilatation or calcified biliary stones.; PANCREAS: The pancreas is normal in size, contour and density. No suspicious cystic lesion or ductal; dilatation.; SPLEEN: Normal in size with no suspicious cystic lesion.; ADRENALS: The adrenal glands are unremarkable.; KIDNEYS/URETERS: The kidneys are normal in size. Bilateral cortical low-density lesions noted which a; re probable cysts. No stones or hydroureteronephrosis.; URINARY BLADDER: The urinary bladder is unremarkable without calcified stone, wall thickening or dive; rticula seen.; UTERUS/ADNEXA: The uterus and adnexa are unremarkable.; AORTA AND ILIAC ARTERIES: No aneurysmal dilatation of the aorta or iliac arteries is seen.; LYMPH NODES: No enlarged adenopathy.; GASTROINTESTINAL: Sigmoid diverticulosis noted without findings of acute diverticulitis. Stomach, duo; denum and remaining bowel normal in caliber with no abnormal dilatation, stenosis, or wall thickening; .; PERITONEUM/RETROPERITONEUM: No ascites or suspicious fluid collection, extraluminal air, or suspiciou; s mass.; ABDOMINAL/PELVIC WALL: No hernia is identified.; OSSEOUS STRUCTURES/SOFT TISSUES: No suspicious osseous lesion, acute fracture, or soft tissue abnorma; lity. T11, T12, and L2 mild superior compression deformities with sclerotic changes, without perivert; ebral soft tissue swelling or hematoma; and likely chronic. Moderate L4-S1 degenerative disc changes; with endplate sclerosis, disc space narrowing and calcifications. Cortical defect in the posterior me; dial right iliac bone noted which from prior trauma or intervention.; IMPRESSION :; 1. Cholelithiasis noted without findings of acute cholecystitis.; 2. Bilateral renal cortical cysts.; 3. No other acute intra-abdominal pelvic abnormality identified.; ; Outcome: 19:15 Decision to Hospitalize by Provider. ke 22:31 Discharge Assessment: Patient awake, alert and oriented x 3. No cognitive and/or nn1 functional deficits noted. Patient verbalized understanding of disposition instructions. patient administered narcotics - no. The following High Risk Discharge criteria are identified: None. Admitted to PCU accompanied by nurse, accompanied by tech, via stretcher, with oxygen, on monitor, with chart. Condition: stable. Admission hand-off: Report Faxed Fax receipt verified by DERRICK Lord . Property :Personal belongings accompany Pt. 22:33 No special radiology studies were completed. nn1 22:57 Patient left the ED. nn1 Signatures: Dispatcher [employer] EDMS Becky Díaz, Regulatory Analyst Unit lbd Taylor Piper, Vikas Parker, HOP FARMER HOP FARMER Niki Patel JaneRN Arin Sue RN RN ttb Rillera, Nicole, RN RN nr1 Nunez, Nikkole, RN RN nn1 Kareem Isaac, PAIL BAILER PAIL BAILER sarita Colunga, Gloria, PAIL BAILER PAIL BAILER cln Chart Complete MTDD
--- NOTE | 2016-09-10 23:58 | EDDOCDS ---
Physician Documentation [facility] Name: Margo Navarrete Age: 85 yrs Sex: Female : 1930 Arrival Date: 09/08/2016 Time: 15:46 Bed 5 Private MD: Kristin Lazar E Disposition: 09/08/16 19:15 Hospitalization ordered by Stew Richards for Inpatient Admission. Preliminary diagnosis is Urinary tract infection, site not specified. - Bed requested for PCU. - Status is Inpatient Admission. nn1 - Condition is Stable. - Problem is an acute exacerbation. - Symptoms are unchanged. Historical: - Allergies: no known allergies; - Home Meds: 1. albuterol sulfate 2.5 mg /3 mL (0.083 %) Nebulizer nebu 4 times per day 2. prednisone 20 mg Oral tab 2 tabs once daily 3. Senna-S 8.6-50 mg oral tab 4. Zebeta 5 mg oral tab 5. Zoloft 25 mg Oral tab 1 tab once daily 6. levothyroxine 125 mcg Oral tab 1 tab once daily 7. ipratropium-albuterol 20-100 mcg/actuation Inhl mist 8. acetaminophen 325 mg Oral tab 2 tabs 9. sorbitol 70 % miscellaneous soln 10. aspirin 81 mg Oral tab 11. Lasix 20 mg Oral tab 1 tab once daily 12. Dulcolax (bisacodyl) 5 mg Oral TbEC 1 tab 13. Milk of Magnesia 400 mg/5 mL Oral susp - PMHx: CKD stage 3; Hypothyroidism; COPD; Dementia; Alzheimers; dysphagia; - PSHx: Unable to obtain; - Social history: Smoking status: unknown if patient ever smoked tobacco. non-verbal. - Family history: No immediate family members are acutely ill. - : The pt / caregiver states he / she is not on anticoagulants. Home medication list is obtained from the facility OCT. - Exposure Risk Screening:: Recent exposure to bronchitis. Vital Signs: 09/08 16:47 BP 114 / 72; Pulse 91; Resp 20; Temp 98.0(TE); Pulse Ox 93% on 4 lpm NC; Height 5 ft. 6 nr1 in. (167.64 cm); 17:00 Pulse 78 MON; Pulse Ox 94% ; ttb 17:30 Pulse 80 MON; Pulse Ox 95% ; ttb 18:00 Pulse 78 MON; Pulse Ox 94% ; ttb 18:49 BP 173 / 82 (auto/); ttb 18:49 Pulse 76 MON; Resp 20; Pulse Ox 93% on 2 lpm NC; Pain 0/10; ttb 21:17 BP 142 / 83; Pulse 82; Resp 18; Temp 98.2(TE); Pulse Ox 93% on R/A; mdr 22:30 BP 183 / 78; Pulse 79; Resp 20; Temp 98(TE); Pulse Ox 94% on 2 lpm NC; nn1 MDM: 16:14 -Blood Culture (Adults Only), peripheral from different site, or from device/port/PICC ke etc. if present ordered. 16:14 IV Saline Lock ordered. ke 16:14 Undress patient appropriately for examination ordered. ke 16:14 Straight cath ordered. ke 16:14 NS 0.9% 1000 ml IV at 250 mL/hr continuous ordered. ke 16:15 Amylase Ordered. EDMS 16:15 Basic Metabolic Profile Ordered. EDMS 16:15 CBC with Diff Ordered. EDMS 16:15 Lipase Ordered. EDMS 16:15 Liver Profile Ordered. EDMS 16:15 Prothrombin Time Profile\E\INR Ordered. EDMS 16:15 Urinalysis Ordered. EDMS 16:15 Lactic Acid (Stout tube on ice) Ordered. EDMS 16:15 Urine Culture Ordered. EDMS 16:16 Abdomen, Flat\E\Upright,PA Chest Ordered. EDMS 16:16 NOTHING BY MOUTH+DIET ordered. EDMS 16:28 DIFFERENTIAL NO CHARGE Ordered. EDMS 16:39 -Blood Culture (Adults Only), peripheral from different site, or from device/port/PICC lbd etc. if present complete. 16:41 BLOOD CULTURES Ordered. EDMS 16:58 Financial registration complete. zo 16:59 [facility] Payment Agreement was scanned into [employer] and attached to record. zo 18:27 Basic Metabolic Profile Reviewed. ke 18:27 CBC with Diff Reviewed. ke 18:27 Liver Profile Reviewed. ke 18:27 Prothrombin Time Profile\E\INR Reviewed. ke 18:27 Urinalysis Reviewed. ke 18:27 Lactic Acid (Stout tube on ice) Reviewed. ke 18:27 Amylase Reviewed. ke 18:27 Lipase Reviewed. ke 18:27 PLATELET ESTIMATE Reviewed. ke 18:27 Abdomen, Flat\E\Upright,PA Chest Reviewed. ke 18:33 Ciprofloxacin 400 mg IVPB at 200 mL/hr once over 60 mins ordered. ke 18:34 BED REQUEST+ADM ordered. EDMS 20:21 NPO DIET ordered. EDMS 20:23 Admission / Observation Status ordered. EDMS 20:23 CT ABD & PELVIS W/O CONTRAST Ordered. EDMS 20:24 LACTIC ACID LEVEL, LACTATE Ordered. EDMS 20:24 CBC WITH DIFFERENTIAL Ordered. EDMS 20:24 RENAL PROFILE Ordered. EDMS 20:24 MAGNESIUM LEVEL Ordered. EDMS 20:24 INFLUENZA A&B RAPID ANTIGEN Ordered. EDMS 21:21 OSMOLALITY,URINE Ordered. EDMS 21:21 SODIUM,RANDOM URINE Ordered. EDMS 22:25 THYROID STIMULATING HORMONE Ordered. EDMS 09/09 11:22 T-Sheet-- Draft Copy was scanned into [employer] and attached to record. gb 11: PCR was scanned into [employer] and attached to record. gb Administered Medications: 09/08 17:21 Drug: NS 0.9% 1000 ml [sodium chloride 0.9 % intravenous solution] Route: IV; Rate: 250 ttb mL/hr; Site: left antecubital; 18:48 Drug: Ciprofloxacin 400 mg [ciprofloxacin 400 mg/200 mL in 5 % dextrose intravenous nr1 piggyback] Route: IVPB; Rate: 200 mL/hr; Infused Over: 60 mins; Site: left antecubital; 20:00 Follow up: Response: No Adverse Reaction; No significant change.; IV Status: Completed ttb infusion Signatures: Dispatcher [employer] EDOK Becky Díaz, Fraud Investigator Unit Aliyah Wynne RN RN daTaylor Knutson, Jonathan Reg gb Vikas Patterson, WELDING MANAGER WELDING MANAGER Niki Patel Nicole, RN RN nr1 Maxwell Sunshine RN RN brice1 Arin Price RN ttb The chart was reviewed and I authenticate all verbal orders and agree with the evaluation and treatment provided.Attachments: 16:59 [facility] Payment Agreement zo 09/09 11:22 T-Sheet-- Draft Copy gb Chart Complete MTDD
[2016-09-11] MEDS ORDERED: CIPROFLOXACIN 250 MG TAB PO SCH (09:00)
[2016-09-11] MEDS: LORazepam 2 MG/ML VIAL (J2060) IV PRN ×3 (11:24→18:02)
--- NOTE | 2016-09-11 15:04 | IPNPDOC ---
Text Note Date of Service The patient was seen on 09/11/16 at 15:01. NOTE Subjective: Patient is an 85 year old female with a PMHx HTN Hypothyroidism, Advanced Dementia, First degree AV oracio, Depression, GERD, Osteoporosis, and History of diverticulosis who presented from for abdominal pain and projectile vomiting. Patient was reportedly being treated for bronchitis and COPD exacerbation. At the [place] patient experienced vomiting of 3 episodes and may have had diarrhea as well, she was then transferred to [facility] for further evaluation. Patient was seen and examined at the bedside. Patient remains non-verbal, appears comfortable. Objective: Vitals - not checked Physical exam not completed Assessment and plan: 1. s/p Abdominal pain with nausea and vomiting, with possible diarrhea - likely 2/2 UTI - Swallow study complete - NPO strict; only passive ability to swallow - MOLST form describes no Feeding tube - off antibiotics - BEEF SPECIALIST 2. Sepsis - likely 2/2 intraabdominal etiology - likely 2/2 UTI 2/2 Proteus Mirabilis - off antibiotics - on BEEF SPECIALIST 3. s/p Lactic acidosis - possibly from sepsis, possibly from dehydration / hypovolemia - s/p Normal saline 4. CHUY - likely pre-renal etiology - s/p NS 5. Hypernatremia - s/p D5W 6. Hypothyroidism 7. Depression 8. GI prophylaxis 9. DVT prophylaxis Code Status: - DNR/DNI; BEEF SPECIALIST - Son (Stew: [phone]) Disposition: - Patient was made BEEF SPECIALIST after discussing case with son (health care proxy) VS,Fishbone, I+O VS, Fishbone, I+O Vital Signs Date Time Temp Pulse Resp B/P Pulse Ox O2 Delivery O2 Flow Rate FiO2 09/11/16 08:00 Nasal Cannula 3.0 09/10/16 08:00 96.8 92 20 154/79 95 I&O- Last 24 Hours up to 6 AM 09/11/16 06:00 Intake Total 0 ml Output Total 0 ml Balance 0 ml MARIA E LANDAVERDE MD Sep 11, 2016 15:04
[2016-09-11] MEDS: MORPHINE 10MG/0.5ML ORAL CONCENTRATE SOLUTION U/D SL PRN (17:14)
[2016-09-12] MEDS: LORazepam 2 MG/ML VIAL (J2060) IV PRN ×3 (07:31→18:56)
--- NOTE | 2016-09-12 13:21 | IPNPDOC ---
Text Note Date of Service The patient was seen on 09/12/16 at 13:18. NOTE Subjective: Patient is an 85 year old female with a PMHx HTN Hypothyroidism, Advanced Dementia, First degree AV oracio, Depression, GERD, Osteoporosis, and History of diverticulosis who presented from for abdominal pain and projectile vomiting. Patient was reportedly being treated for bronchitis and COPD exacerbation. At the [place] patient experienced vomiting of 3 episodes and may have had diarrhea as well, she was then transferred to [facility] for further evaluation. Patient was seen and examined at the bedside. Patient remains non-verbal, appears comfortable. Will discuss case further with sons and daughter. Objective: Vitals - not checked Physical exam not completed Assessment and plan: 1. s/p Abdominal pain with nausea and vomiting, with possible diarrhea - likely 2/2 UTI - Swallow study complete - NPO strict; only passive ability to swallow - As per MOLST no Feeding tube - off antibiotics - RIB BENDER 2. Sepsis - likely 2/2 intraabdominal etiology - likely 2/2 UTI 2/2 Proteus Mirabilis - off antibiotics - on RIB BENDER 3. s/p Lactic acidosis 4. CHUY - likely pre-renal etiology 5. Hypernatremia 6. Hypothyroidism 7. Depression 8. GI prophylaxis 9. DVT prophylaxis Code Status: - DNR/DNI; RIB BENDER Disposition: - Patient was made RIB BENDER after discussing case with sonStew: [phone] ( Health care proxy) VS,Fishbone, I+O VS, Fishbone, I+O Vital Signs Date Time Temp Pulse Resp B/P Pulse Ox O2 Delivery O2 Flow Rate FiO2 09/11/16 22:00 Nasal Cannula 3.0 09/10/16 08:00 96.8 92 20 154/79 95 I&O- Last 24 Hours up to 6 AM 09/12/16 06:00 Intake Total 0 ml Output Total 0 ml Balance 0 ml MARIA E LANDAVERDE MD Sep 12, 2016 13:21
--- NOTE | 2016-09-13 11:25 | IPNPDOC ---
Text Note Date of Service The patient was seen on 09/13/16 at 11:24. NOTE Subjective: Patient is an 85 year old female with a PMHx HTN Hypothyroidism, Advanced Dementia, First degree AV oracio, Depression, GERD, Osteoporosis, and History of diverticulosis who presented from for abdominal pain and projectile vomiting. Patient was reportedly being treated for bronchitis and COPD exacerbation. At the [place] patient experienced vomiting of 3 episodes and may have had diarrhea as well, she was then transferred to [facility] for further evaluation. Patient was seen and examined at the bedside. Patient remains non-verbal, appears comfortable. Case will be discussed with family about which facility she would like to return to, or if she will remain here. Objective: Vitals - not checked Physical exam not completed Assessment and plan: 1. s/p Abdominal pain with nausea and vomiting, with possible diarrhea - likely 2/2 UTI - Strict NPO based on swallow study; No PEG tube based on MOLST - off antibiotics - SIDE STITCHING MACHINE OPERATOR 2. Sepsis - likely 2/2 intraabdominal etiology - likely 2/2 UTI 2/2 Proteus Mirabilis - off antibiotics - on SIDE STITCHING MACHINE OPERATOR 3. s/p Lactic acidosis 4. CHUY - likely pre-renal etiology 5. Hypernatremia 6. Hypothyroidism 7. Depression 8. GI prophylaxis 9. DVT prophylaxis Code Status: - DNR/DNI; SIDE STITCHING MACHINE OPERATOR Disposition: - Patient was made SIDE STITCHING MACHINE OPERATOR after discussing case with sonStew: [phone] ( Health care proxy) - Case management and PFS to determine placement option vs staying here VS,Cecy, I+O VS, Clairee, I+O Vital Signs Date Time Temp Pulse Resp B/P Pulse Ox O2 Delivery O2 Flow Rate FiO2 09/13/16 08:00 Nasal Cannula 3.0 09/10/16 08:00 96.8 92 20 154/79 95 I&O- Last 24 Hours up to 6 AM 09/13/16 06:00 Intake Total 0 ml Output Total 0 ml Balance 0 ml MARIA E LANDAVERDE MD Sep 13, 2016 11:25
[2016-09-13] MEDS: LORazepam 2 MG/ML VIAL (J2060) IV PRN ×2 (12:32→15:19)
[2016-09-13] MEDS: SCOPOLAMINE 1.5 MG TRANSDERMAL TD PRN (19:36)
[2016-09-14] MEDS: LORazepam 2 MG/ML VIAL (J2060) IV PRN (11:05)
--- NOTE | 2016-09-14 15:17 | IPNPDOC ---
Text Note Date of Service The patient was seen on 09/14/16 at 14:57. NOTE Subjective: Lethargic and somnolent Objective: Vitals: (see below) General: Lethargic HEENT: Dry mucous membranes. Neck: No JVD or lymphadenopathy Cardiac: RRR Pulm: Labored, No wheezing, no rhonchi Abd: NT/ND + BS Ext: No edema or cyanosis Assessment/Plan 1. Severe sepsis secondary to Proteus Sidhu 2. Lactic acidosis 3. Acute kidney injury 4. Hypernatremia 5. Hypothyroidism Dr. Reeves had spoken to the family on 09/13/16, with the healthcare proxy noted as Stew [phone], and patient was made DNR/DNI/SENIOR MANAGER MERGERS & ACQUISITIONS. Continue morphine and Ativan. VS,Fishbone, I+O VS, Fishbone, I+O Vital Signs Date Time Temp Pulse Resp B/P Pulse Ox O2 Delivery O2 Flow Rate FiO2 09/14/16 08:45 Nasal Cannula 3.0 09/10/16 08:00 96.8 92 20 154/79 95 I&O- Last 24 Hours up to 6 AM 09/14/16 06:00 Intake Total 0 ml Output Total 0 ml Balance 0 ml LEXI SCHULTE MD Sep 14, 2016 15:17
--- NOTE | 2016-09-15 14:27 | IPNPDOC ---
Text Note Date of Service The patient was seen on 09/15/16 at 14:27. NOTE Subjective: Lethargic and somnolent Objective: Vitals: (see below) General: Lethargic HEENT: Dry mucous membranes. Neck: No JVD or lymphadenopathy Cardiac: RRR Pulm: Labored, No wheezing, no rhonchi Abd: NT/ND + BS Ext: No edema or cyanosis Assessment/Plan 1. Severe sepsis secondary to Proteus Sidhu 2. Lactic acidosis 3. Acute kidney injury 4. Hypernatremia 5. Hypothyroidism Dr. Reeves had spoken to the family on 09/13/16, with the healthcare proxy noted as Stew [phone], and patient was made DNR/DNI/PHARMACEUTICAL PROCESS ENGINEER. Continue morphine and Ativan. VS,Fishbone, I+O VS, Fishbone, I+O Vital Signs Date Time Temp Pulse Resp B/P Pulse Ox O2 Delivery O2 Flow Rate FiO2 09/15/16 09:26 Nasal Cannula 3.0 09/10/16 08:00 96.8 92 20 154/79 95 I&O- Last 24 Hours up to 6 AM 09/15/16 06:00 Intake Total 0 ml Output Total 0 ml Balance 0 ml LEXI SCHULTE MD Sep 15, 2016 14:27
--- NOTE | 2016-09-16 14:04 | IPNPDOC ---
Text Note Date of Service The patient was seen on 09/16/16 at 14:02. NOTE Subjective: Lethargic and somnolent Objective: Vitals: (see below) General: Lethargic HEENT: Dry mucous membranes. Neck: No JVD or lymphadenopathy Cardiac: RRR Pulm: Labored, No wheezing, no rhonchi Abd: NT/ND + BS Ext: No edema or cyanosis Assessment/Plan 1. Severe sepsis secondary to Proteus Mirabilis. 2. Lactic acidosis 3. Acute kidney injury 4. Hypernatremia 5. Hypothyroidism Dr. Reeves had spoken to the family on 09/13/16, with the healthcare proxy noted as Stew [phone], and patient was made DNR/DNI/SCOURING TRAIN OPERATOR. Continue morphine and Ativan. Discussed with the granddaughter at bedside - family will be coming to the hospital tonight. VS,Fishbone, I+O VS, Fishbone, I+O Vital Signs Date Time Temp Pulse Resp B/P Pulse Ox O2 Delivery O2 Flow Rate FiO2 09/16/16 09:00 Nasal Cannula 3.0 09/10/16 08:00 96.8 92 20 154/79 95 I&O- Last 24 Hours up to 6 AM 09/16/16 05:59 Intake Total 0 ml Output Total 0 ml Balance 0 ml LEXI SCHULTE MD Sep 16, 2016 14:04
[2016-09-17] MEDS: MORPHINE 10MG/0.5ML ORAL CONCENTRATE SOLUTION U/D SL PRN (08:40)
[2016-09-17] MEDS: LORazepam 2 MG/ML VIAL (J2060) IV PRN (08:40)
--- NOTE | 2016-09-17 18:50 | DS.PDOC ---
Discharge Summary General Date of Admission Sep 08, 2016 at 20:20 Date of Discharge Sep 17, 2016 at 13:31 Attending Physician: LEXI SCHULTE MD Discharge Summary COMPLICATIONS/CHIEF COMPLAINT: Abdominal Pain ADMISSION/DISCHARGE DIAGNOSES: 1. Severe sepsis secondary to Proteus Mirabilis. 2. Lactic acidosis secondary to sepsis 3. Acute renal failure 4. Hypernatremia 5. Hypothyroidism 6. Dementia 7. Hypothyroidism 8. Depression Patient had presented with abdominal pain and found to be in severe sepsis from urinary tract infection. She was evaluated by Dr. Reeves, who had spoken to the family on 09/13/16, with the healthcare proxy noted as Stew [phone], and patient was made DNR/DNI/BOX BLANK MACHINE OPERATOR HELPER. Pt on 09/17/16. Vital Signs/I&Os Vital Signs Date Time Temp Pulse Resp B/P Pulse Ox O2 Delivery O2 Flow Rate FiO2 09/17/16 09:00 Nasal Cannula 3.0 I&O- Last 24 Hours up to 6 AM 09/17/16 06:00 Intake Total 0 ml Output Total 0 ml Balance 0 ml Microbiology Microbiology 09/08/16 Blood Culture - Final, Complete NO GROWTH AFTER 5 DAYS 09/09/16 Influenza Virus Type A Antigen - Final, Complete 09/09/16 Influenza Virus Type B Antigen - Final, Complete 09/08/16 Urine Culture - Final, Complete Proteus Mirabilis Medications Scheduled Acetaminophen (Tylenol) 325 Mg Tab 650 MG PO DAILY Albuterol Sulfate (Albuterol Sulfate) 2.5 Mg/3 Ml Nebu 2.5 MG INH QID Albuterol/Ipratropium (Combivent Respimat 20-100 Mcg/Act) 1 Aer Aer 1 PUFF INH BID Aspirin (Aspirin 81) 81 Mg Tab 81 MG PO DAILY Bisoprolol Fumarate (Bisoprolol Fumarate) 5 Mg Tab 5 MG PO DAILY Furosemide (Lasix) 20 Mg Tab 20 MG PO DAILY Levothyroxine Sodium (Levoxyl) 125 Mcg Tab 125 MCG PO DAILY Prednisone (Prednisone) 20 Mg Tab 40 MG PO DAILY TAKE AT NOON FOR 5 DAYS: 09/06/16 - 09/10/16 Sertraline Hcl (Sertraline HCl) 25 Mg Tab 25 MG PO Q2D Sorbitol (Sorbitol 70%) 30 Ml Luisana 15 ML PO Q2D Scheduled PRN (Enema) 1 Keila Keila 1 KEILA MO DAILY PRN PRN BOWEL CARE Acetaminophen (Acetaminophen) 325 Mg Tab 650 MG PO Q4H PRN PRN PAIN / FEVER Albuterol Sulfate (Albuterol Sulfate) 2.5 Mg/3 Ml Nebu 2.5 MG INH QID PRN PRN SHORTNESS OF BREATH Bisacodyl (Bisacodyl) 10 Mg Sup 10 MG MO DAILY PRN PRN BOWEL CARE Milk Of Magnesia (Milk of Magnesia) 1,200 Mg/15 Ml Ariana 30 ML PO DAILY PRN PRN CONSTIPATION Senna (Senna Lax) 8.6 Mg Tab 1 TAB PO DAILY PRN PRN CONSTIPATION Allergies Coded Allergies: No Known Drug Allergy (Verified Allergy, Unknown, 11/21/12) LEXI SCHULTE MD Sep 17, 2016 18:50
== END 2016-09-17 13:31 | disposition expired | DRG 871 ==
LOC: M ED 15:46 → M ED INP 20:20 → M PCU 22:50 → M MSPAV 09-10 23:09
PROVIDERS: ADMIT Internal Medicine; ATTEND Internal Medicine
DX: A41.9 Sepsis, unspecified organism (principal); R53.2 Functional quadriplegia; N39.0 Urinary tract infection, site not specified; J44.1 Chronic obstructive pulmonary disease with (acute) exacerbation; N17.9 Acute kidney failure, unspecified; E87.2 Acidosis; E87.0 Hyperosmolality and hypernatremia; R65.20 Severe sepsis without septic shock; I44.0 Atrioventricular block, first degree; Z66 Do not resuscitate; Z51.5 Encounter for palliative care; R32 Unspecified urinary incontinence; B96.4 Proteus (mirabilis) (morganii) as the cause of diseases classified elsewhere; D72.829 Elevated white blood cell count, unspecified; R10.9 Unspecified abdominal pain; K57.90 Diverticulosis of intestine, part unspecified, without perforation or abscess without bleeding; F03.90 Unspecified dementia, unspecified severity, without behavioral disturbance, psychotic disturbance, mood disturbance, and anxiety; R13.10 Dysphagia, unspecified; E03.9 Hypothyroidism, unspecified; F32.9 Major depressive disorder, single episode, unspecified; I10 Essential (primary) hypertension; K21.9 Gastro-esophageal reflux disease without esophagitis; M81.0 Age-related osteoporosis without current pathological fracture; Z79.82 Long term (current) use of aspirin; Z79.899 Other long term (current) drug therapy; Z79.51 Long term (current) use of inhaled steroids

== ENCOUNTER → 2016-09-08 | Outpatient (REF) | payer MEDICARE, MEDICAID ==
[2016-09-08 15:32] LABS: MEAN CORPUSCULAR HEMOGLOBIN 29.5 pg (27.0-33.0); MEAN CORPUSCULAR HGB CONC 31.2 g/dl (32.0-36.5); MEAN CORPUSCULAR VOLUME 94.5 fl (80.0-96.0); RED CELL DISTRIBUTION WIDTH 14.9 % (11.5-14.5); WHITE BLOOD COUNT 14.8 K/mm3 (4.0-10.0)
[2016-09-08 15:44] LABS: ALBUMIN 3.4 GM/DL (3.2-5.2); ALBUMIN/GLOBULIN RATIO 0.85 (1.00-1.93); ALKALINE PHOSPHATASE 90 U/L (45-117); ALT/SGPT 31 U/L (12-78); AMYLASE 57 U/L (25-115); ANION GAP 9 MEQ/L (8-16); AST/SGOT 37 U/L (15-37); BILIRUBIN,DIRECT < 0.1 MG/DL (0.0-0.2); BILIRUBIN,TOTAL 0.2 MG/DL (0.2-1.0); BLOOD UREA NITROGEN 62 MG/DL (7-18); CALCIUM LEVEL 9.5 MG/DL (8.8-10.2); CARBON DIOXIDE LEVEL 32 MEQ/L (21-32); CHLORIDE LEVEL 109 MEQ/L (98-107); CREATININE FOR GFR 1.58 MG/DL (0.55-1.02); GLUCOSE, FASTING 119 MG/DL (83-110); POTASSIUM SERUM 4.2 MEQ/L (3.5-5.1); SODIUM LEVEL 150 MEQ/L (136-145); TOTAL PROTEIN 7.4 GM/DL (6.4-8.2)
== END ==
PROVIDERS: ATTEND Internal Medicine
DX: J44.9 Chronic obstructive pulmonary disease, unspecified (principal)